=== PATIENT | male | born 1975 | race Hispanic/Latino ===

== ENCOUNTER 2023-03-07 15:39 | Emergency (ER) | payer MEDICAID, SELFPAY ==
[2023-03-07 15:53] VITALS: BP 126/87; PULSE 86; RESP 16; TEMP 36.4; O2SAT 97
--- NOTE | 2023-03-07 16:27 | ED.GENADULT ---
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 Patient report that he he has pain at the distal area of bilateral 4th toes nails, no redness or any drainage noted. Patient has cut his nails short.Bilateral great toes have hardened yellowed nails but patient denies any pain to those nails. Patient has not taken any OTC medication for his pain. MD complaint: pain bilateral 4th toes at distal nails Onset (ago): week(s) (2-3 weeks) Location: lower extremity (feet 4th nails) Severity scale (1-10): 7 Treatments prior to arrival: none Related Data Home Medications Medication Instructions Recorded Confirmed allopurinol 100 mg tablet mg 03/07/23 atorvastatin 40 mg tablet mg 03/07/23 finasteride 5 mg tablet mg 03/07/23 fluticasone propionate 50 intranasal 03/07/23 mcg/actuation nasal spray,suspension gabapentin 300 mg capsule mg 03/07/23 tamsulosin 0.4 mg capsule mg PO 03/07/23 Allergies Allergy/AdvReac Type Severity Reaction Status Date / Time No Known Allergies Allergy Verified 03/07/23 15:52 Review of Systems Review of Systems: CONSTITUTIONAL: Denies fever, chills, or sweats. EYES: Denies visual changes, redness, or discharge. ENT: Denies rhinorrhea, congestion, sore throat, or otalgia. CARDIOVASCULAR: Denies chest pain, palpitations, or edema. RESPIRATORY: Denies cough or dyspnea. GASTROINTESTINAL: Denies abdominal pain, nausea, vomiting, or diarrhea. GENITOURINARY: Denies dysuria or hematuria. SKIN: Denies rash or itching. MUSCULOSKELETAL: Denies back pain, joint pain, or myalgia.reports pain to his bilateral 4th toes nail area thinks toenails are ingrown NEUROLOGIC: Denies headache, numbness, or weakness. PSYCHIATRIC: Denies anxiety or depression. All systems reviewed & are unremarkable except as noted in HPI and below PMFSH Past Medical History Medical History (Updated 03/09/23 @ 10:00 by Radha Toney NP) Enlarged prostate Gout Hyperlipidemia Kidney stone Social History Social History (Updated 03/09/23 @ 09:59 by Radha Toney NP) Smoking status: Never smoker Alcohol intake: current Alcohol use details: social Substance use type: does not use Gender identity (if verbalized by the patient): Male Comments At time of signature, agree with nursing past medical, surgical, social and family history. There is no relevant family history pertinent to the presenting complaint Exam Narrative: GENERAL: Well-appearing, well-nourished, and in no acute distress.afebrile HEAD: Normocephalic, atraumatic. EYES: PERRLA and EOMI. ENT: Nares clear, no rhinorrhea or epistaxis. Mucous membranes moist.TM's normal, throat pink with no swelling NECK: Supple. no lymphadenopathy CHEST: Clear to auscultation. No respiratory distress.SAO2 97% on room air HEART: Regular rate and rhythm. No murmur heard. Normal peripheral pulses. ABDOMEN: Soft, nontender, nondistended, normal active bowel sounds EXTREMITIES: Normal range of motion. No edema. SKIN: Warm, dry, no rash. reports pain to distal area of nail bilateral 4th toes with no redness swelling or drainage noted from toes, patient has cut nails short on these toes with no induration or indention of nails, reports tenderness to distal aspect of 4th toe nails bilateral feet. NEURO: No focal deficits. Alert and oriented x3. Course Course Emergency Course: Patient is aware of diagnosis, understands and ag
== END 2023-03-07 16:40 | disposition home or self-care (01) ==
PROVIDERS: Emergency Provider Registered Nurse
DX: M79.675 Pain in left toe(s) (principal); M79.674 Pain in right toe(s); N40.0 Benign prostatic hyperplasia without lower urinary tract symptoms; M10.9 Gout, unspecified; E78.5 Hyperlipidemia, unspecified
CPT/HCPCS: 99203; G0463

== ENCOUNTER 2023-07-18 09:15 | Outpatient (CLI) | payer MEDICAID, SELFPAY | END 2023-07-18 09:16 | disposition home or self-care (01) | LOC: ANHAUDIO 09:16 | PROVIDERS: PCP Registered Nurse; Referring Provider Registered Nurse; Visit Provider Registered Nurse | DX: H91.93 Unspecified hearing loss, bilateral (principal) | CPT/HCPCS: 99199 ==

== ENCOUNTER 2023-09-26 19:53 | Emergency (ER) | payer MEDICAID, SELFPAY ==
--- NOTE | ~2023-09-26 | XR_ITS ---
EXAMINATION: XR chest 2V 09/26/2023 20:41 INDICATION: Shortness of breath PROCEDURE: 2 view chest COMPARISON: No prior studies for comparison. FINDINGS: The lungs are clear. The cardiomediastinal silhouette is within normal limits. There are no pleural effusions. There is no pneumothorax suspected. IMPRESSION: 1: NO ACUTE CARDIOPULMONARY DISEASE. Reviewed, dictated and finalized at location A.
--- NOTE | ~2023-09-26 | CT_ITS ---
EXAMINATION: CTA chest PE protocol DATE: 09/26/2023 23:36 INDICATION: Chest pain and shortness of breath TECHNIQUE: Computed tomography (CT) pulmonary angiogram of the chest was performed with 100 mL Omnipa que-350 intravenous contrast. Additional 3D reconstructions utilizing coronal maximum intensity proje ction (MIP) were performed. The dose-length product was 541.00 mGy-cm. COMPARISON: None FINDINGS: Good but suboptimal contrast opacification of the pulmonary arteries which along with small amount sc attered respiratory motion decreases sensitivity in the smaller subsegmental pulmonary arteries. No p ulmonary embolism identified. Calcified left apical nodule consistent with old granulomatous disease. Lungs are otherwise clear with no pneumonia, pulmonary edema, pleural effusion or pneumothorax. Hear t size is normal. No pericardial effusion. Thoracic aorta is normal in caliber with no dissection. No pathologically enlarged thoracic lymphadenopathy. Mild thoracic spondylosis. Chronic appearing mild anterior wedging at T11-L1. IMPRESSION: 1. No pulmonary embolism or other acute cardiopulmonary disease. Reviewed, dictated and finalized at location A.
[2023-09-26 19:57] VITALS: BP 145/86; PULSE 97; RESP 12; TEMP 36.7; O2SAT 100
--- NOTE | 2023-09-26 19:57 | ECG_ITS ---
Measurements Intervals [place] Rate: 96 P: 34 [place]: 168 QRS: 0 QRSD: 80 T: 6 QT: 309 QTc: 392 Interpretive Statements SINUS RHYTHM VOLTAGE CRITERIA FOR LVH MINIMAL Q WAVES- HIGH LATERAL LEADS BASELINE ARTIFACT- I, II, AVR BORDERLINE ECG NO PREVIOUS ECG AVAILABLE FOR COMPARISON Electronically Signed On 09-26-2023 20:32:44 CDT by Mc Moreira D.O.
[2023-09-26 20:09] VITALS: O2SAT 98
[2023-09-26 20:20] LABS: Basophils Percent Auto 0.3 % (0.2-1.2); Eosinophils Absolute Auto 0.2 K/mm3 (0-0.3); Eosinophils Percent Auto 2.3 % (0-4.4); Hematocrit 46.2 % (42.0-52.0); Hemoglobin 15.2 g/dL (14.0-18.0); Immature Granulocyte Absolute 0.03 K/mm3 (0.00-0.031); Immature Granulocyte Percent A 0.3 % (0-0.5); Lymphocytes Absolute Auto 4.34 K/mm3 (0.9-3.2); Lymphocytes Percent Auto 42.5 % (18.3-44.2); Mean Corpuscular HGB Conc 32.9 g/dl (32-36); Mean Corpuscular Hemoglobin 28.8 pg (26-34); Mean Corpuscular Volume 87.7 fl (80-100); Mean Platelet Volume 12.7 fl (7.4-10.4); Monocytes Absolute Auto 0.7 K/mm3 (0.1-0.6); Monocytes Percent Auto 7.1 % (2.6-8.5); Neutrophils Absolute Auto 4.9 K/mm3 (1.3-6.7); Neutrophils Percent Auto 47.5 % (45.5-73.1); Platelet Count Result 195 k/mm3 (150-375); Red Blood Count 5.27 M/mm3 (4.6-6.20); Red Cell Distribution Width 14.6 % (11.5-14.5); White Blood Count 10.2 K/mm3 (4.5-10.0)
[2023-09-26 20:43] LABS: Alanine Aminotransferase 32 U/L (6-50); Albumin Level 4.6 g/dL (3.5-5.1); Alkaline Phosphatase 73 U/L (38-126); Anion Gap 7 mmol/L (8-16); Aspartate Amino Transferase 28 U/L (17-59); Bilirubin,Total 0.6 mg/dL (0.2-1.3); Blood Urea Nitrogen 12 mg/dL (9-20); Calcium 9.5 mg/dL (8.4-10.2); Carbon Dioxide 25 mmol/L (22-30); Chloride 108 mmol/L (98-107); Estimated CRCL calculation 162 ml/min; Estimated Glomerular Filt Rate > 60; Glucose 149 mg/dL (65-110); Sodium 140 mmol/L (137-145)
[2023-09-26 20:44] VITALS: BP 129/91; PULSE 94; RESP 14; O2SAT 96
[2023-09-26 20:57] LABS: NT Pro B Type Natriuretic Pept < 20 pg/mL (19.9-100); Troponin I < 0.012 ng/mL (0.000-0.034)
[2023-09-26 21:12] LABS: INR 0.9
[2023-09-26 21:13] LABS: Partial Thromboplastin Time 32.4 Seconds (22.3-36.8)
[2023-09-26 21:16] LABS: Influenza A QL RT-PCR Negative (Negative); Influenza B QL RT-PCR Negative (Negative); RSV RNA, RT-PCR Negative (Negative); SARS-CoV-2 RNA PCR Negative (Negative)
[2023-09-26 21:58] VITALS: BP 119/84; PULSE 96; RESP 19; O2SAT 98
--- NOTE | 2023-09-26 22:45 | ED.GENADULT ---
HPI - General Adult General Chief complaint: Shortness of Breath/Dyspnea Stated complaint: i cant breathe well Time Seen by Provider: 09/26/23 19:58 History of Present Illness HPI narrative: Patient is a 48-year-old gentleman who presents emergency department with chief complaint of shortness of breath. Patient reports that for some time he has been having some episodes of shortness of breath patient states it feels as though he just can not get a good deep breath. Patient states that he also had some tightness in his chest with this patient states this been ongoing for over a year reports that he has not seen his primary care provider about a patient denies radiation of the pain denies diaphoresis reports that he has no prior cardiac history. Related Data Home Medications Medication Instructions Recorded Confirmed allopurinol 100 mg tablet mg 03/07/23 atorvastatin 40 mg tablet mg 03/07/23 finasteride 5 mg tablet mg 03/07/23 fluticasone propionate 50 intranasal 03/07/23 mcg/actuation nasal spray,suspension gabapentin 300 mg capsule mg 03/07/23 tamsulosin 0.4 mg capsule mg PO 03/07/23 Allergies Allergy/AdvReac Type Severity Reaction Status Date / Time No Known Allergies Allergy Verified 03/07/23 15:52 Review of Systems Review of Systems: A 10 system review of systems was completed on the patient and is negative except for what is stated in the HPI. Nursing and ancillary documentation was reviewed. COUNT INCLUDES THE [facility] Past Medical History Medical History Enlarged prostate Gout Hyperlipidemia Kidney stone Social History Social History Smoking status: Never smoker Alcohol intake: current Alcohol use details: social Substance use type: does not use Gender identity (if verbalized by the patient): Male Exam Narrative: GENERAL: Well-appearing, well-nourished, and in no acute distress. HEAD: Normocephalic, atraumatic. EYES: PERRLA and EOMI. ENT: Nares clear, no rhinorrhea or epistaxis. Mucous membranes moist. NECK: Supple. CHEST: Clear to auscultation. No respiratory distress. HEART: Regular rate and rhythm. No murmur heard. Normal peripheral pulses. ABDOMEN: Soft, nontender, nondistended, normal active bowel sounds. EXTREMITIES: Normal range of motion. No edema. SKIN: Warm, dry, no rash. NEURO: No focal deficits. Alert and oriented x3. PSYCH: Normal mood and affect. Course Vital Signs Vital signs: Vital Signs Temperature 36.7 C 09/26/23 19:57 Pulse Rate 97 09/26/23 19:57 Respiratory Rate 12 09/26/23 19:57 Blood Pressure 145/86 H 09/26/23 19:57 Pulse Oximetry 100 09/26/23 19:57 Temperature 36.7 C 09/26/23 19:57 Pulse Rate 70 09/27/23 02:15 Respiratory Rate 21 H 09/27/23 02:15 Blood Pressure 134/86 09/27/23 02:15 Pulse Oximetry 95 09/27/23 02:15 Oxygen Delivery Room Air 09/26/23 20:09 Medical Decision Making MDM Narrative Medical decision making narrative: Differential diagnosis includes pneumothorax, pneumonia, PE, aortic dissection, CHF, ACS, Laboratory studies were obtained and were within normal limits EKG showed no acute ischemic changes white count was normal troponin was negative at 0 and 3 hours BNP was normal COVID flu and RSV were negative. CT PE protocol was negative for PE Vital Signs Vital Signs: Vital Signs Temperature 36.7 C 09/26/23 19:57 Pulse Rate 97 09/26/23 19:57 Respiratory Rate 12 09/26/23 19:57 Blood Pressure 145/86 H 09/26/23 19:57 Pulse Oximetry 100 09/26/23 19:57 Temperature 36.7 C 09/26/23 19:57 Pulse Rate 70 09/27/23 02:15 Respiratory Rate 21 H 09/27/23 02:15 Blood Pressure 134/86 09/27/23 02:15 Pulse Oximetry 95 09/27/23 02:15 Oxygen Delivery Room Air 09/26/23 20:09 Lab Data 09/26/23 20:13 09/26/23 20:13
[2023-09-26 23:00] VITALS: BP 119/84; PULSE 92; RESP 16; O2SAT 93
--- NOTE | 2023-09-26 23:14 | PC.NURSE ---
Assumed care of pt at this time. Pt alert and upright on stretcher.
--- NOTE | 2023-09-26 23:23 | PC.NURSE ---
Pt to CT via stretcher at this time.
--- NOTE | 2023-09-26 23:39 | ECG_ITS ---
Measurements Intervals [place] Rate: 75 P: 25 [place]: 175 QRS: -1 QRSD: 87 T: 0 QT: 319 QTc: 358 Interpretive Statements SINUS RHYTHM VOLTAGE CRITERIA FOR LVH MINIMAL Q WAVES- HIGH LATERAL LEADS BORDERLINE ST-T WAVE ABNORMALITY- INFERIOR LEADS BORDERLINE ECG COMPARED TO ECG 09/26/2023 20:06:36 NO SIGNIFICANT CHANGES Electronically Signed On 09-27-2023 7:54:38 CDT by Mc Moreira D.O.
[2023-09-27 00:23] LABS: Troponin I < 0.012 ng/mL (0.000-0.034)
[2023-09-27 00:24] VITALS: BP 136/76; PULSE 85; RESP 13; O2SAT 96
[2023-09-27 02:15] VITALS: BP 134/86; PULSE 70; RESP 21; O2SAT 95
[2023-09-27 03:41] VITALS: BP 132/86; PULSE 80; RESP 17; O2SAT 99
== END 2023-09-27 03:41 | disposition home or self-care (01) ==
PROVIDERS: Emergency Provider Emergency Medicine; PCP Registered Nurse
DX: R06.00 Dyspnea, unspecified (principal); Z20.822 Contact with and (suspected) exposure to COVID-19; E78.5 Hyperlipidemia, unspecified; M10.9 Gout, unspecified; N40.0 Benign prostatic hyperplasia without lower urinary tract symptoms; Z87.442 Personal history of urinary calculi; R94.31 Abnormal electrocardiogram [ECG] [EKG]
CPT/HCPCS: 36415; 71046; 71275; 80053; 83880; 84484; 85025; 85610; 85730; 87637; 93005; 99284; Q9967

== ENCOUNTER 2024-09-21 13:00 | Outpatient (CLI) | payer MEDICAID, SELFPAY ==
--- NOTE | 2024-09-21 13:30 | NEURO_ITS ---
Impression: # Complains of right hand numbness. ? # Right Carpal Tunnel Syndrome. ? # No ulnar neuropathy. ? # Normal needle/EMG exam. Nerve Conduction Studies Anti Sensory Summary Table ?Stim Site NR Peak (ms) P-T Amp (?V) Site1 Site2 Delta-P (ms) Dist (cm) David (m/s) Right Median Anti Sensory (2-3nd Digit) Wrist ? 3.9 31.9 Wrist 2-3nd Digit 3.9 14.0 36 Wrist ? 4.2 7.4 Wrist 2-3nd Digit 3.9 14.0 36 Right Radial Anti Sensory (Base 1st Digit) Wrist ? 1.9 30.6 Wrist Base 1st Digit 1.9 0.0 Right Ulnar Anti Sensory (5th Digit) Wrist ? 2.3 51.7 Wrist 5th Digit 2.3 14.0 61 Motor Summary Table ?Stim Site NR Onset (ms) O-P Amp (mV) Site1 Site2 Delta-0 (ms) Dist (cm) David (m/s) Right Median Motor (Abd Poll Brev) Wrist ? 4.5 3.5 Elbow Wrist 5.2 30.0 58 Elbow ? 9.7 3.1 Right Ulnar Motor (Abd Dig Minimi) Wrist ? 2.5 5.5 A Elbow Wrist 5.1 30.0 59 A Elbow ? 7.6 4.6 F Wave Studies ?NR F-Lat (ms) L-R F-Lat (ms) Right Median (Mrkrs) (Abd Poll Brev) ? 29.09 Right Ulnar (Mrkrs) (Abd Dig Min) ? 28.22 EMG ?Side Muscle Nerve Root Ins Act Fibs Amp Dur Recrt Comment Right 1stDorInt Ulnar C8-T1 Nml Nml Nml Nml Nml Right Ext Indicis Radial (Post Int) C7-8 Nml Nml Nml Nml Nml Right Ext Digitorum Radial (Post Int) C7-8 Nml Nml Nml Nml Nml Right BrachioRad Radial C5-6 Nml Nml Nml Nml Nml Right PronatorTeres Median C6-7 Nml Nml Nml Nml Nml Right Abd Poll Brev Median C8-T1 Nml Nml Nml Nml Nml Right ABD Dig Min Ulnar C8-T1 Nml Nml Nml Nml Nml MTDD
--- OUTSIDE RECORDS SUMMARY | 2024-09-21 14:44 | XMS_ITS | Clinical Summary ---
Author Organization [facility] Address [address] [place] [id number] Care Team Providers Care Etl Manager Name Role Phone Lesvia Wiseman DEBEAKER Primary Care Provider [phone] Allergies No known active allergies Medications omeprazole (PriLOSEC) 40 mg capsule Take 1 capsule (40 mg total) by mouth daily 30 capsule 09/29/2023 Active Social History Tobacco Use Types Packs/Day Years Used Date Smoking Tobacco: Never Assessed Personal Safety Answer Date Recorded Have you ever been in or are you currently in a harmful physical or emotional relationship or is someone making you feel afraid or unsafe? Denies 09/29/2023 Sex and Gender Information Value Date Recorded Sex Assigned at Not on file Legal Sex Male 12:27 PM CDT Gender Identity Not on file Sexual Orientation Not on file Last Filed Vital Signs Vital Sign Reading Time Taken Comments Blood Pressure 151/95 09/29/2023 9:00 PM CDT Pulse 79 09/29/2023 9:00 PM CDT Temperature 36.8 C (98.2 F) 09/29/2023 12:30 PM CDT Respiratory Rate 10 09/29/2023 9:00 PM CDT Oxygen Saturation 99% 09/29/2023 9:00 PM CDT Inhaled Oxygen Concentration - - Weight 86.6 kg (190 lb 14.7 oz) 024 12:30 PM CDT Height - - Body Mass Index - - Plan of Treatment Health Maintenance Due Date Last Done Comments Colon Cancer Screening-Colonoscopy 1976 Depression Screening 1976 Hepatitis C Screening 1976 Hepatitis B Screening 02/19/1994 Regular Well Visit/Exam 18-64 02/19/1994 Influenza Vaccine (#1) 2024 DTaP/Tdap/Td Vaccine (2 - Td or Tdap) 11/15/2032 11/15/2022 Pneumococcal vaccine <65 Aged Out No longer eligible based on patient's age to complete this topic Insurance IDPA Care Teams Etl Manager Relationship Specialty Start Date End Date Lesvia Wiseman NP [address] [place] [address] PCP - General Nurse Practitioner 09/29/23
--- OUTSIDE RECORDS SUMMARY | 2024-09-21 14:44 | XMS_ITS | Referral Summary ---
Author Organization [facility] Address [address] [place] [id number] Care Team Providers Care Ice Cream Freezer Assistant Name Role Phone Lesvia Wiseman CAFE COOK Primary Care Provider [phone] Allergies No known active allergies Medications omeprazole [...] Mass Index - - Plan of Treatment Not on file Insurance IDPA Care Teams Ice Cream Freezer Assistant Relationship Specialty Start Date End Date Lesvia Wiseman NP [address] [place] [address] PCP - General Nurse Practitioner 09/29/23
--- OUTSIDE RECORDS SUMMARY | 2024-09-21 14:44 | XMS_ITS | Data Portability ---
Author Organization [facility] Address [address] [place] [address] Care Team Providers Care Crane Man Name Role Phone DAVID, LESVIA Primary Care Provider Unavailabl e Assessment No assessment recorded. 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 Not available Not available Not available Lab lipid panel, serum 2024 025 D[facility], [address] [place], [place] [address], [address], [place], [address], 08/20/2024 22:07:06 glucose, fingersti ck, blood 2024 025 yanet In-Office Order, Internal Use Only DO Not Attach Compendium DO Not Attach Compendium, Do Not Delete/merge, [id number] 08/20/2024 10:50:44 HbA1c (hemoglob in A1c), blood 2024 025 DARCY In-Office Order, Internal Use Only DO Not Attach Compendium DO Not Attach Compendium, Do Not Delete/merge, [id number] 08/20/2024 10:54:08 culture, urine 2024 025 [facility], [facility], [address], [place], [address], 07/23/2024 21:07:22 albumin/c reatinine , mass ratio, urine 2024 025 DARCY ORTIZ, [facility], [address], [place], [address], 07/22/2024 11:14:56 PSA, total, serum or plasma 2024 025 [facility], [address], [address], [place], [address], 07/22/2024 11:14:59 urinalysi s, dipstick 2024 025 DARCY In-Office Order, Internal Use Only DO Not Attach Compendium DO Not Attach Compendium, Do Not Delete/merge, [id number] 07/21/2024 11:06:52 HbA1c (hemoglob in A1c), blood 2024 025 DARC[facility] In-Office Order, Internal Use Only DO Not Attach Compendium DO Not Attach Compendium, Do Not Delete/merge, [id number] 07/21/2024 11:07:10 CMP, serum or plasma 2024 025 [facility], [address], [address], [place], [address], 07/21/2024 22:07:32 CBC w/ auto diff 2024 025 [facility], [address], [address], [place], [address], 07/21/2024 22:07:33 lipid panel, serum 2024 025 [facility], [address], [address], [place], [address], 07/21/2024 22:07:31 TSH, ultra-sen sitive, serum 2024 025 DARC[facility], [address], [address], [place], [address], 07/22/2024 11:14:58 lipid panel, serum 2023 024 ADR[facility], [address], [address], [place], [address], 11/10/2023 22:07:23 CMP, serum or plasma 2023 024 D[facility], [address], [address], [place], [address], 11/10/2023 22:07:24 TSH, ultra-sen sitive, serum 2023 024 [facility], [address], [address], [place], [address], 11/11/2023 12:12:57 CBC w/ auto diff 2023 024 [facility], [address], [address], [place], [address], 11/10/2023 22:07:24 urinalysi s, dipstick, reflex micro 2023 024 D[facility], [address], [address], [place], [address], 11/11/2023 12:12:56 HbA1c (hemoglob in A1c), blood 2023 024 [place] In-Office Order, Internal Use Only DO Not Attach Compendium DO Not Attach Compendium, Do Not Delete/merge, [id number] 11/10/2023 14:36:[address] referral 2024 025 [facility] (Audiology), [address] [place] [address] [address], [place], [address], 07/21/2024 16:01:15 urologist referral 2023 024 [facility], [address], [place], [address], 08/24/2024 10:30:55 Procedures nerve conductio n study/EMG , upper extremity (PROC) - numbness and tingling of hands/fin gers/wris t for months worse on R than L 2024 025 [facility] (Cardiology & Emg), [address] [facility] [facility] [address], [place], [address], 08/05/2024 16:18:48 Surgeries None recorded. Imaging tympanogr am 2024 025 [place] In-Office Order, Internal Use Only DO Not Attach Compendium DO Not Attach Compendium, Do Not Delete/merge, [id number] 09/08/2024 15:55:42 Medication Orders Vascepa 1 gram capsule 2024 025 [facility], [address] [place] [address], [id number], 08/20/2024 10:50:44 metformin ER 500 mg tablet,ex tended release 24 hr 2024 025 [facility], [address] [place] [address], [place], [address], 08/20/2024 10:51:16 doxycycli ne hyclate 100 mg tablet 2024 025 [facility], [address] [place] [address], [id number], 08/20/2024 10:11:08 metformin ER 500 mg tablet,ex tended release 24 hr 2024 025 [facility], [address] [place] [address], [id number], 07/21/2024 11:18:26 chlorthal idone 15 mg tablet 2024 025 [place], [address] [place] [address], [id number], 07/28/2024 12:57:21 tamsulosi n 0.4 mg capsule 2024 025 [facility], [address] [place] [address], [id number], 07/22/2024 11:58:15 finasteri de 5 mg tablet 2024 025 [facility], [address] [place] [address], [id number], 07/22/2024 11:58:13 selenium sulfide 2.5 % lotion 2024 [facility], [address] [place] [address], [id number], 07/21/2024 10:42:03 atorvasta tin 40 mg tablet 2024 025 [facility], [address] [place] [address], [id number], 07/29/2024 17:21:29 Vascepa 1 gram capsule 2024 025 [facility], [address] [place] [address], [id number], 07/22/2024 11:28:00 citalopra m 20 mg tablet 2024 025 [facility], [address] [place] [address], [id number], 07/21/2024 10:37:47 gabapenti n 300 mg capsule 2024 025 [facility], [address] [place] [address], [id number], 07/28/2024 12:57:21 allopurin ol 200 mg tablet 2024 025 [facility], [address] [place] [address], [id number], 07/29/2024 11:42:45 chlorthal idone 15 mg tablet 2023 [facility], [address] [place] [address], [id number], 04/20/2024 11:32:58 tamsulosi n 0.4 mg capsule 2023 [facility], [address] [place] [address], [id number], 04/20/2024 11:33:01 finasteri de 5 mg tablet 2023 [facility], [address] [place] [address], [id number], 04/20/2024 11:32:56 atorvasta tin 40 mg tablet [address] [facility], [address] [place] [address], [id number], 07/29/2024 17:11:22 Vascepa 1 gram capsule 2023 [facility], [address] [place] [address], [id number], 04/20/2024 11:33:00 gabapenti n 300 mg capsule 2023 [facility], [address] [place] [address], [id number], 04/20/2024 11:33:03 allopurin ol 200 mg tablet 2023 [facility], [address] [place] [address], [id number], 04/20/2024 11:32:58 citalopra m 20 mg tablet 2023 [facility], [address] [place], [id number], 12/29/2023 13:13:13 ciproflox acin 0.3 %-dexamet hasone 0.1 % ear drops,[employer] 2023 024 [facility], [address] [place], [address], 04/20/2024 10:28:26 chlorthal idone 15 mg tablet 2023 024 [facility], [address] [place] [address], [id number], 12/03/2023 16:37:40 tamsulosi n 0.4 mg capsule 2023 024 [facility], [address] [place] [address], [id number], 05/28/2024 18:13:47 finasteri de 5 mg tablet 2023 024 [facility], [address] [place] [address], [id number], 11/10/2023 15:27:51 atorvasta tin 40 mg tablet [address] [facility], [address] [place] [address], [id number], 07/29/2024 17:11:22 Vascepa 1 gram capsule 2023 024 [facility], [address] [place] [address], [id number], 11/13/2023 16:20:33 gabapenti n 300 mg capsule 2023 024 [facility], [address] [place] [address], [id number], 11/13/2023 16:20:32 allopurin ol 200 mg tablet 2023 024 [facility], [address] [place], [place], [id number], 05/28/2024 17:48:31 Patient TargetsNo targets recorded. Patient Instructions Encounter Date Encounter Id Patient Instructions Last Modified By Organization Details Last Modified Time 11/10/2023 [id number] A healthy lifestyle: care instructions yarauz Not available 11/10/2023 14:01:24 P rdida de la audici n: instrucciones de cuidado - [hearing loss: care instructions] yarauz Not available 11/10/2023 14:01:24 aprenda sobre la presi n arterial elsa - [learning about high blood pressure] yarauz Not available 11/10/2023 14:01:24 Enfermedad hep chapo grasa no alcoh lica: Instrucciones de cuidado - [Nonalcoholic Fatty Liver Disease (NAFLD): Care Instructions] yarauz Not available 11/10/2023 14:14:28 hiperplasia pros t chapo benigna: instrucciones de cuidado - [benign prostatic hyperplasia: care instructions] yarauz Not available 11/10/2023 14:01:24 S ndrome del t viridiaan carpiano: ejercicios - [carpal tunnel syndrome: exercises] yarauz Not available 11/10/2023 14:01:24 S ndrome del t viridiana carpiano: instrucciones de cuidado - [carpal tunnel syndrome: care instructions] yarauz Not available 11/10/2023 14:01:24 aprenda sobre la dieta para prevenir los c lculos renales - [learning about diet for kidney stone prevention] yarauz Not available 11/10/2023 14:01:24 C lculo renal: instrucciones de cuidado - [kidney stone: care instructions] yarauz Not available 11/10/2023 14:01:24 dieta restringid a en purinas: instrucciones de cuidado - [purine-restricted diet: care instructions] yarauz Not available 11/10/2023 14:01:24 trastorno de adaptaci n: instrucciones de cuidado - [neuropathic pain: care instructions] yarauz Not available 11/10/2023 14:01:24 aprenda acerca d el peso saludable - [learning about healthy weight] yarauz Not available 11/10/2023 14:01:23 ndice de masa corporal: instrucciones de cuidado - [body mass index: care instructions] yarauz Not available 11/10/2023 14:01:24 Mantenga un peso saludable. O si lo necesita, llegue lentamente a un peso saludable. Controle san colesterol. Hable con san m dico acerca de maneras de reducir el colesterol, si es necesario. Podr a tratar de hacer actividad, juliet medicamentos y hacer cambios saludables en san dieta. Coma alimentos saludables. Entre ellos se incluyen frutas, verduras, brian magras, productos l cteos bajos en grasa y granos integrales. Si tiene diabetes, mantenga el nivel de az car en la joel en san nivel ideal. Anali por lo menos 30 minutos de ejercicio la mayor a de los d as de la semana. Caminar es chaparro buena opci n. Quiz tambi n desee hacer otras actividades, jonn correr, nadar, montar en bicicleta, jugar al tenis o practicar otros deportes de equipo. Limite el consumo de alcohol, o no armin. El alcohol puede da ar el h gado y causar problemas de aniket. yarauz Not available 11/10/2023 13:39:31 use wrist splint take medication as directed Uncontrolled Hypertension potential risks, heart attack, , stroke, kidney failure etc. Hypertension is the silent Killer Take your Hypertension medication daily keep appointments stop concentrated sugars--follow 1500 meal plan exercise 50-60 minutes daily on most days see eye doctor once a year see dentist every 6 months yarauz Not available 11/10/2023 13:39:30 12/29/2023 [id number] Cuando desea baj ar de peso: Instrucciones de cuidado - [When You Want to Lose Weight: Care Instructions] yarauz Not available 12/29/2023 13:12:49 A healthy lifestyle: care instructions yarauz Not available 12/29/2023 13:12:49 Benefits risks o f psychotropic medications if you develop suicidal thoughts or behaviors seek immediate reevaluation avoid alcohol when taking psychotropic medications if you develop fevers, chills, diarrhea, muscle symptoms or seizures to seek immediate reevaluation take your medicine as directed Pt. advised to call 911 or go to a local Emergency Department with any SI or HI, thoughts of self harm or any psychiatric emergency. Pt. is deemed safe and appropriate for continued out patient treatment. Pt. advised of the risk benefit ratio of medication, possible side effects and interactions of the meditations. Pt. wishes to continue with the treatment plan. Pt. advised to call or come in sooner than the scheduled appt. if there are any worsening of symptoms or problems with the medication yarauz Not available 12/29/2023 13:10:23 04/20/2024 [id number] A healthy lifestyle: care instructions yarauz Not available 04/20/2024 10:50:52 P rdida de la audici n: instrucciones de cuidado - [hearing loss: care instructions] yarauz Not available 04/20/2024 10:50:52 aprenda sobre la presi n arterial elsa - [learning about high blood pressure] yarauz Not available 04/20/2024 10:50:52 Enfermedad hep chapo grasa no alcoh lica: Instrucciones de cuidado - [Nonalcoholic Fatty Liver Disease (NAFLD): Care Instructions] yarauz Not available 04/20/2024 10:50:52 hiperplasia pros t chapo benigna: instrucciones de cuidado - [benign prostatic hyperplasia: care instructions] yarauz Not available 04/20/2024 10:50:52 S ndrome del t viridiana carpiano: ejercicios - [carpal tunnel syndrome: exercises] yarauz Not available 04/20/2024 10:50:52 S ndrome del t viridiana carpiano: instrucciones de cuidado - [carpal tunnel syndrome: care instructions] yarauz Not available 04/20/2024 10:50:52 vacuna contra la influenza (gripe): instrucciones de cuidado - [influenza (flu) vaccine: care instructions] yarauz Not available 04/20/2024 10:50:52 dieta restringid a en purinas: instrucciones de cuidado - [purine-restricted diet: care instructions] yarauz Not available 04/20/2024 10:50:52 trastorno de adaptaci n: instrucciones de cuidado - [neuropathic pain: care instructions] yarauz Not available 04/20/2024 10:50:52 aprenda acerca d el peso saludable - [learning about healthy weight] yarauz Not available 04/20/2024 10:50:52 ndice de masa corporal: instrucciones de cuidado - [body mass index: care instructions] yarauz Not available 04/20/2024 10:50:52 Mantenga un peso saludable. O si lo necesita, llegue lentamente a un peso saludable. Controle san colesterol. Hable con san m dico acerca de maneras de reducir el colesterol, si es necesario. Podr a tratar de hacer actividad, juliet medicamentos y hacer cambios saludables en san dieta. Coma alimentos saludables. Entre ellos se incluyen frutas, verduras, brian magras, productos l cteos bajos en grasa y granos integrales. Si tiene diabetes, mantenga el nivel de az car en la joel en san nivel ideal. Anali por lo menos 30 minutos de ejercicio la mayor a de los d as de la semana. Caminar es chaparro buena opci n. Quiz tambi n desee hacer otras actividades, jonn correr, nadar, montar en bicicleta, jugar al tenis o practicar otros deportes de equipo. Limite el consumo de alcohol, o no armin. El alcohol puede da ar el h gado y causar problemas de aniket. yarauz Not available 04/20/2024 14:59:52 use wrist splint take medication as directed Uncontrolled Hypertension potential risks, heart attack, , stroke, kidney failure etc. Hypertension is the silent Killer Take your Hypertension medication daily keep appointments stop concentrated sugars--follow 1500 meal plan exercise 50-60 minutes daily on most days see eye doctor once a year see dentist every 6 months yarauz Not available 04/20/2024 14:59:55 07/21/2024 [id number] joel en la orina: instrucciones de cuidado - [blood in the urine: care instructions] yarauz Not available 07/21/2024 11:18:08 aprenda acerca d e la diabetes tipo 2 - [learning about type 2 diabetes] yarauz Not available 07/21/2024 11:18:08 diabetes tipo 2: instrucciones de cuidado - [type 2 diabetes: care instructions] yarauz Not available 07/21/2024 11:18:08 A healthy lifestyle: care instructions yarauz Not available 07/21/2024 10:37:25 A healthy lifestyle: care instructions yarauz Not available 07/21/2024 11:18:08 P rdida de la audici n: instrucciones de cuidado - [hearing loss: care instructions] yarauz Not available 07/21/2024 10:37:25 aprenda sobre la presi n arterial elsa - [learning about high blood pressure] yarauz Not available 07/21/2024 10:37:25 Enfermedad hep chapo grasa no alcoh lica: Instrucciones de cuidado - [Nonalcoholic Fatty Liver Disease (NAFLD): Care Instructions] yarauz Not available 07/21/2024 10:37:25 hiperplasia pros t chapo benigna: instrucciones de cuidado - [benign prostatic hyperplasia: care instructions] yarauz Not available 07/21/2024 10:37:25 S ndrome del t viridiana carpiano: ejercicios - [carpal tunnel syndrome: exercises] yarauz Not available 07/21/2024 10:37:25 S ndrome del t viridiana carpiano: instrucciones de cuidado - [carpal tunnel syndrome: care instructions] yarauz Not available 07/21/2024 10:37:25 dieta restringid a en purinas: instrucciones de cuidado - [purine-restricted diet: care instructions] yarauz Not available 07/21/2024 10:37:26 trastorno de adaptaci n: instrucciones de cuidado - [neuropathic pain: care instructions] yarauz Not available 07/21/2024 10:37:26 aprenda acerca d el peso saludable - [learning about healthy weight] yarauz Not available 07/21/2024 10:37:25 ndice de masa corporal: instrucciones de cuidado - [body mass index: care instructions] yarauz Not available 07/21/2024 10:37:25 Mantenga un peso saludable. O si lo necesita, llegue lentamente a un peso saludable. Controle san colesterol. Hable con san m dico acerca de maneras de reducir el colesterol, si es necesario. Podr a tratar de hacer actividad, juliet medicamentos y hacer cambios saludables en san dieta. Coma alimentos saludables. Entre ellos se incluyen frutas, verduras, brian magras, productos l cteos bajos en grasa y granos integrales. Si tiene diabetes, mantenga el nivel de az car en la joel en san nivel ideal. Anali por lo menos 30 minutos de ejercicio la mayor a de los d as de la semana. Caminar es chaparro buena opci n. Quiz tambi n desee hacer otras actividades, jonn correr, nadar, montar en bicicleta, jugar al tenis o practicar otros deportes de equipo. Limite el consumo de alcohol, o no armin. El alcohol puede da ar el h gado y causar problemas de aniket. yarauz Not available 07/21/2024 10:26:28 use wrist splint take medication as directed Uncontrolled Hypertension potential risks, heart attack, , stroke, kidney failure etc. Hypertension is the silent Killer Take your Hypertension medication daily keep appointments stop concentrated sugars--follow 1500 meal plan exercise 50-60 minutes daily on most days see eye doctor once a year see dentist every 6 months yarauz Not available 07/21/2024 10:26:29 08/20/2024 [id number] aprenda acerca d e la diabetes tipo 2 - [learning about type 2 diabetes] yarauz Not available 08/20/2024 10:50:44 diabetes tipo 2: instrucciones de cuidado - [type 2 diabetes: care instructions] yarauz Not available 08/20/2024 10:50:44 aprenda acerca d el peso saludable - [learning about healthy weight] yarauz Not available 08/20/2024 10:50:44 ndice de masa corporal: instrucciones de cuidado - [body mass index: care instructions] yarauz Not available 08/20/2024 10:50:44 DIABETIS MELLITUS NO TRATADA PUEDE RESULTAR EN COMPLICACIONES QUE CONDUCEN A MUERTE SUBITA, CEGUEZ, FALLO DE LOS RINONES, AMPUTACIONES ETC. TOME SAN MEDICAMENTOS TODOS LOS ARENAS CHEQUEE SAN AZUCAR EN AYUNA Y DOS HORAS DESPUES DE COMER--MANTENGA UN DIARIO--TRAIGA A SAN PROXIMA BRIEN DEJE DE JULIET COMER AZUCARES CONCENTRADAS--SIGA UN PLAN DE ALIMENTACION DE 1500 CALORIAS AL JUVENAL CHEQUEE SHELDON PIES POR CORTADA, LLAGAS ETC., TERENCE AL DOCTOR DE LOS OJOS CHAPARRO VEZ AL ANO Y PIDA UN EXAMEN DE DIABETIS DE OJOS TERENCE AL DENTISTA CADA 6 MESES yarauz Not available 08/20/2024 10:47:57 test results morris e vascepa 2 caps twice daily increase metformin ER 500mg one daily to two tabs once daily Uncontrolled Diabetes Mellitus complications , blindness, kidney failure, amputations etc. Take your diabetes medication daily check blood sugars fasting and post prandial --keep a log--bring to next appointment stop concentrated sugars--follow 1500 meal plan exercise 50-60 minutes daily on most days check your feet for sores, cuts, etc., see eye doctor once a year see dentist every 6 months yanet Not available 08/20/2024 10:47:42 Reason for Referral Urologist Referral for Histo ry of calculus of kidney History of calculus of kidney Referring Physician: Lesvia Wiseman [facility], Encounter Date: 11/10/2023 [facility] Psychiatry Referral for Kane ateral hearing loss Bilateral hearing loss Referring Physician: Lesvia Wiseman [facility], Encounter Date: 07/21/2024 Results Created Date Observation Date Name Description Value Unit Range Abnormal Flag Note LastModifiedBy Organization Detail LastModifiedTime 11/10/19 24 11/10/2023 LIPID PANEL cholesterol, total 242 mg/dL 100-19 9 above high normal Not Available [facility] [address] [place], [address], 11/10/2023 22:07:23 11/10/19 24 11/10/2023 LIPID PANEL triglyceride s 350 mg/dL 0-149 above high normal Not Available [facility] [address] [place], [address], 11/10/2023 22:07:23 11/10/19 24 11/10/2023 LIPID PANEL HDL cholesterol 41 mg/dL 40-999 Not Available [facility] [address] [place], [address], 11/10/2023 22:07:23 11/10/19 24 11/10/2023 LIPID PANEL VLDL cholesterol lizzeth 70 mg/dL 5-40 above high normal Not Available [facility] [address] [place], [address], 11/10/2023 22:07:23 11/10/19 24 11/10/2023 LIPID PANEL LDL chol calc (nih) 179 mg/dL 0-99 above high normal Not Available [facility] [address] [place], [address], 11/10/2023 22:07:23 11/10/19 24 11/10/2023 COMP. METAB OLIC PANEL (14) glucose 93 mg/dL 70-[address] [facility] [address] [place], [address], 11/10/2023 22:07:24 11/10/19 24 11/10/2023 COMP. METAB OLIC PANEL (14) BUN 14 mg/dL 6-[address] [facility] [address] [place] [address], [address], 11/10/2023 22:07:24 11/10/19 24 11/10/2023 COMP. METAB OLIC PANEL (14) creatinine 0.68 mg/dL 0.76-1 .27 below low normal Not Available [facility] [address] [place] [address], [address], 11/10/2023 22:07:24 11/10/19 24 11/10/2023 COMP. METAB OLIC PANEL (14) eGFR 115 >=60 Units for eGFR value s are mL/mi n/1.7 3 The eGFR Calcu latio n has not been valid ated for patie nts under the age of 18. If test resul ts are displ ayed for a patie nt under the age of 18, disre cassi that value . Not Available [facility] [address] [place] [address], [address], 11/10/2023 22:07:24 11/10/19 24 11/10/2023 COMP. METAB OLIC PANEL (14) BUN/creatini ne ratio 21 9-20 above high normal Not Available [facility] [address] [place] [address], [address], 11/10/2023 22:07:24 11/10/19 24 11/10/2023 COMP. METAB OLIC PANEL (14) sodium 139 mmol/ L 134-[address] [facility] [address] [place] [address], [address], 11/10/2023 22:07:24 11/10/19 24 11/10/2023 COMP. METAB OLIC PANEL (14) potassium 4.2 mmol/ L 3.5-5. [address] [facility] [address] [place] [address], [address], 11/10/2023 22:07:24 11/10/19 24 11/10/2023 COMP. METAB OLIC PANEL (14) chloride 104 mmol/ L 96-[address] [facility] [address] [place] [address], [address], 11/10/2023 22:07:24 11/10/19 24 11/10/2023 COMP. METAB OLIC PANEL (14) carbon dioxide, total 21 mmol/ L 20-[address] [facility] [address] [place] [address], [address], 11/10/2023 22:07:24 11/10/19 24 11/10/2023 COMP. METAB OLIC PANEL (14) calcium 9.8 mg/dL 8.7-[address] [facility] [address] [place] [address], [address], 11/10/2023 22:07:24 11/10/19 24 11/10/2023 COMP. METAB OLIC PANEL (14) protein, total 7.6 g/dL 6.0-8. [address] [facility] [address] [place] [address], [address], 11/10/2023 22:07:24 11/10/19 24 11/10/2023 COMP. METAB OLIC PANEL (14) albumin 4.8 g/dL 4.1-5. [address] [facility] [address] [place] [address], [address], 11/10/2023 22:07:24 11/10/19 24 11/10/2023 COMP. METAB OLIC PANEL (14) globulin, total 2.8 g/dL 1.5-4. [address] [facility] [address] [place], [address], 11/10/2023 22:07:24 11/10/19 24 11/10/2023 COMP. METAB OLIC PANEL (14) A/G ratio 2.0 1.2-2. [address] [facility] [address] [place], [address], 11/10/2023 22:07:24 11/10/19 24 11/10/2023 COMP. METAB OLIC PANEL (14) bilirubin, total 0.6 mg/dL 0.0-1. [address] [facility] [address] [place], [address], 11/10/2023 22:07:24 11/10/19 24 11/10/2023 COMP. METAB OLIC PANEL (14) alkaline phosphatase 91 IU/L 44-121 Not Available [facility] [address] [place], [address], 11/10/2023 22:07:24 11/10/19 24 11/10/2023 COMP. METAB OLIC PANEL (14) AST (SGOT) 19 IU/L 0-40 Not Available [facility] [address] [place] [address], [address], 11/10/2023 22:07:24 11/10/19 24 11/10/2023 COMP. METAB OLIC PANEL (14) ALT (SGPT) 29 IU/L 0-44 Not Available [facility] Department [address] [place] [address], [address], 11/10/2023 22:07:24 11/10/19 24 11/10/2023 CBC WITH DIFFE RENTI AL/PL ATELE T WBC 8.1 x10e3 /uL 3.4-[address] [facility] [address] [place] [address], [address], 11/10/2023 22:07:24 11/10/19 24 11/10/2023 CBC WITH DIFFE RENTI AL/PL ATELE T RBC 5.73 x10e6 /uL 4.14-[address] [facility] [address] [place], [address], 11/10/2023 22:07:24 11/10/19 24 11/10/2023 CBC WITH DIFFE RENTI AL/PL ATELE T hemoglobin 16.5 g/dL 13.0-[address] [facility] [address] [place], [address], 11/10/2023 22:07:24 11/10/19 24 11/10/2023 CBC WITH DIFFE RENTI AL/PL ATELE T hematocrit 50.2 % 37.5-[address] [facility] [address] [place], [address], 11/10/2023 22:07:24 11/10/19 24 11/10/2023 CBC WITH DIFFE RENTI AL/PL ATELE T MCV 88 fL 79-[address] [facility] [address] [place], [address], 11/10/2023 22:07:24 11/10/19 24 11/10/2023 CBC WITH DIFFE RENTI AL/PL ATELE T MCH 28.8 pg 26.6-[address] [facility] [address] [place], [address], 11/10/2023 22:07:24 11/10/19 24 11/10/2023 CBC WITH DIFFE RENTI AL/PL ATELE T MCHC 32.9 g/dL 31.5-[address] [facility] [address] [place], [address], 11/10/2023 22:07:24 11/10/19 24 11/10/2023 CBC WITH DIFFE RENTI AL/PL ATELE T RDW 13.8 % 11.5-[address] [facility] [address] [place], [address], 11/10/2023 22:07:24 11/10/19 24 11/10/2023 CBC WITH DIFFE RENTI AL/PL ATELE T platelets 221 x10e3 /uL 150-[address] [facility] [address] [place] [address], [address], 11/10/2023 22:07:24 11/10/19 24 11/10/2023 CBC WITH DIFFE RENTI AL/PL ATELE T neutrophils 41 % notest b. Not Available [facility] [address] [place] [address], [address], 11/10/2023 22:07:24 11/10/19 24 11/10/2023 CBC WITH DIFFE RENTI AL/PL ATELE T lymphs 48 % notest b. Not Available [facility] [address] [place] [address], [address], 11/10/2023 22:07:24 11/10/19 24 11/10/2023 CBC WITH DIFFE RENTI AL/PL ATELE T monocytes 7 % notest b. Not Available [facility] [address] [place] [address], [address], 11/10/2023 22:07:24 11/10/19 24 11/10/2023 CBC WITH DIFFE RENTI AL/PL ATELE T eos 3 % notest b. Not Available [facility] [address] [place] [address], [address], 11/10/2023 22:07:24 11/10/19 24 11/10/2023 CBC WITH DIFFE RENTI AL/PL ATELE T basos 1 % notest b. Not Available [facility] [address] [place] [address], [address], 11/10/2023 22:07:24 11/10/19 24 11/10/2023 CBC WITH DIFFE RENTI AL/PL ATELE T neutrophils (absolute) 3.3 x10e3 /uL 1.4-7. [address] [facility] [address] [place], [address], 11/10/2023 22:07:24 11/10/19 24 11/10/2023 CBC WITH DIFFE RENTI AL/PL ATELE T lymphs (absolute) 3.8 x10e3 /uL 0.7-3. 1 above high normal Not Available [facility] [address] [place] [address], [address], 11/10/2023 22:07:24 11/10/19 24 11/10/2023 CBC WITH DIFFE RENTI AL/PL ATELE T monocytes(ab solute) 0.6 x10e3 /uL 0.1-0. [address] [facility] [address] [place], [address], 11/10/2023 22:07:24 11/10/19 24 11/10/2023 CBC WITH DIFFE RENTI AL/PL ATELE T eos (absolute) 0.3 x10e3 /uL 0.0-0. [address] [facility] [address] [place], [address], 11/10/2023 22:07:24 11/10/19 24 11/10/2023 CBC WITH DIFFE RENTI AL/PL ATELE T baso (absolute) 0.1 x10e3 /uL 0.0-0. [address] [facility] [address] [place], [address], 11/10/2023 22:07:24 11/10/19 24 11/10/2023 CBC WITH DIFFE RENTI AL/PL ATELE T immature granulocytes 0.4 % notest b. Not Available [facility] [address] [place], [address], 11/10/2023 22:07:24 11/10/19 24 11/10/2023 CBC WITH DIFFE RENTI AL/PL ATELE T immature grans (abs) 0.0 x10e3 /uL 0.0-0. [address] [facility] [address] [facility], [place], [address], 11/10/2023 22:07:24 11/10/19 24 11/10/2023 CBC WITH DIFFE RENTI AL/PL ATELE T NRBC 0 % 0-[address] [facility] [address] [place], [address], 11/10/2023 22:07:24 11/10/19 24 11/11/2023 URINA LYSIS , ROUTI NE W/RFX specific gravity 1.020 1.005- 1.030 Not Available [facility] ([facility]) [address] [place], [address], 11/11/2023 12:12:56 11/10/19 24 11/11/2023 URINA LYSIS , ROUTI NE W/RFX pH 5.5 5.0-7. 5 Not Available [facility] ([facility]) [address] [place], [address], 11/11/2023 12:12:56 11/10/19 24 11/11/2023 URINA LYSIS , ROUTI NE W/RFX urine-color YELLOW yellow Not Available [facility] ([facility]) [address] [place], [address], 11/11/2023 12:12:56 11/10/19 24 11/11/2023 URINA LYSIS , ROUTI NE W/RFX appearance CLEAR clear Not Available [facility] ([facility]) [address] [place], [address], 11/11/2023 12:12:56 11/10/19 24 11/11/2023 URINA LYSIS , ROUTI NE W/RFX WBC esterase NEGATI VE negati ve Not Available [facility] ([facility]) [address] [facility], [place], [address], 11/11/2023 12:12:56 11/10/19 24 11/11/2023 URINA LYSIS , ROUTI NE W/RFX protein NEGATI VE negati ve/tra ce Not Available [facility] ([facility]) [address] [place], [address], 11/11/2023 12:12:56 11/10/19 24 11/11/2023 URINA LYSIS , ROUTI NE W/RFX glucose NEGATI VE negati ve Not Available [facility] ([facility]) [address] [place], [address], 11/11/2023 12:12:56 11/10/19 24 11/11/2023 URINA LYSIS , ROUTI NE W/RFX ketones NEGATI VE negati ve Not Available [facility] ([facility]) [address] [place], [address], 11/11/2023 12:12:56 11/10/19 24 11/11/2023 URINA LYSIS , ROUTI NE W/RFX occult blood NEGATI VE negati ve Not Available [facility] ([facility]) [address] [place], [address], 11/11/2023 12:12:56 11/10/19 24 11/11/2023 URINA LYSIS , ROUTI NE W/RFX bilirubin NEGATI VE negati ve Not Available [facility] ([facility]) [address] [place], [address], 11/11/2023 12:12:56 11/10/19 24 11/11/2023 URINA LYSIS , ROUTI NE W/RFX urobilinogen ,semi-qn 0.2 mg/dL 0.2-1. 0 Not Available [facility] ([facility]) [address] [facility], [place], [address], 11/11/2023 12:12:56 11/10/19 24 11/11/2023 URINA LYSIS , ROUTI NE W/RFX nitrite, urine NEGATI VE negati ve Not Available [facility] ([facility]) [address] [facility], [place], [address], 11/11/2023 12:12:56 11/10/19 24 11/11/2023 URINA LYSIS , ROUTI NE W/RFX microscopic examination COMMEN T Micro scopi c not indic ated and not perfo rmed. Not Available [facility] ([facility]) [address] [facility], [place], [address], 11/11/2023 12:12:56 11/10/19 24 11/11/2023 TSH RFX ON ABNOR MAL TO FREE T4 TSH 0.946 uIU/m L 0.450- 4.500 Not Available [facility] ([facility]) [address] [facility], [place], [address], 11/11/2023 12:12:57 11/10/19 24 11/10/2023 HbA1c (hemo globi n A1c), blood HbA1c 5.7 Not Available In-Office Order Internal Use Only DO Not Attach Compendium DO Not Attach Compendium, Do Not Delete/merge, [id number] 11/10/2023 13:59:43 07/21/19 25 07/21/2024 LIPID PANEL cholesterol, total 226 mg/dL 100-19 9 above high normal Not Available [facility] [address] [place], [address], 07/21/2024 22:07:30 07/21/19 25 07/21/2024 LIPID PANEL triglyceride s 629 mg/dL 0-149 above high normal Not Available [facility] [address] [place], [address], 07/21/2024 22:07:30 07/21/19 25 07/21/2024 LIPID PANEL HDL cholesterol 31 mg/dL 40-999 below low normal Not Available [facility] [address] [place] [address], [address], 07/21/2024 22:07:30 07/21/19 25 07/21/2024 LIPID PANEL VLDL cholesterol lizzeth 126 mg/dL 5-40 above high normal Not Available [facility] [address] [place] [address], [address], 07/21/2024 22:07:30 07/21/19 25 07/21/2024 LIPID PANEL LDL chol calc (nih) 165 mg/dL 0-99 above high normal Not Available [facility] [address] [place] [address], [address], 07/21/2024 22:07:30 07/21/19 25 07/21/2024 COMP. METAB OLIC PANEL (14) glucose 142 mg/dL 70-99 above high normal Not Available [facility] [address] [place] [address], [address], 07/21/2024 22:07:32 07/21/19 25 07/21/2024 COMP. METAB OLIC PANEL (14) BUN 14 mg/dL 6-[address] [facility] [address] [place] [address], [address], 07/21/2024 22:07:32 07/21/19 25 07/21/2024 COMP. METAB OLIC PANEL (14) creatinine 0.65 mg/dL 0.76-1 .27 below low normal Not Available [facility] [address] [place] [address], [address], 07/21/2024 22:07:32 07/21/19 25 07/21/2024 COMP. METAB OLIC PANEL (14) eGFR 116 >=60 Units for eGFR value s are mL/mi n/1.7 3 The eGFR Calcu latio n has not been valid ated for patie nts under the age of 18. If test resul ts are displ ayed for a patie nt under the age of 18, disre cassi that value . Not Available [facility] [address] [place] [address], [address], 07/21/2024 22:07:32 07/21/19 25 07/21/2024 COMP. METAB OLIC PANEL (14) BUN/creatini ne ratio 22 9-20 above high normal Not Available [facility] [address] [place] [address], [address], 07/21/2024 22:07:32 07/21/19 25 07/21/2024 COMP. METAB OLIC PANEL (14) sodium 142 mmol/ L 134-[address] [facility] [address] [place] [address], [address], 07/21/2024 22:07:32 07/21/19 25 07/21/2024 COMP. METAB OLIC PANEL (14) potassium 4.5 mmol/ L 3.5-5. [address] [facility] [address] [place] [address], [address], 07/21/2024 22:07:32 07/21/19 25 07/21/2024 COMP. METAB OLIC PANEL (14) chloride 105 mmol/ L 96-[address] [facility] [address] [place] [address], [address], 07/21/2024 22:07:32 07/21/19 25 07/21/2024 COMP. METAB OLIC PANEL (14) carbon dioxide, total 24 mmol/ L 20-[address] [facility] [address] [place] [address], [address], 07/21/2024 22:07:32 07/21/19 25 07/21/2024 COMP. METAB OLIC PANEL (14) calcium 9.9 mg/dL 8.7-[address] [facility] [address] [place] [address], [address], 07/21/2024 22:07:32 07/21/19 25 07/21/2024 COMP. METAB OLIC PANEL (14) protein, total 7.7 g/dL 6.0-8. [address] [facility] [address] [place] [address], [address], 07/21/2024 22:07:32 07/21/19 25 07/21/2024 COMP. METAB OLIC PANEL (14) albumin 4.8 g/dL 4.1-5. [address] [facility] [address] [place] [address], [address], 07/21/2024 22:07:32 07/21/19 25 07/21/2024 COMP. METAB OLIC PANEL (14) globulin, total 2.9 g/dL 1.5-4. [address] [facility] [address] [place] [address], [address], 07/21/2024 22:07:32 07/21/19 25 07/21/2024 COMP. METAB OLIC PANEL (14) A/G ratio 2.0 1.2-2. [address] [facility] [address] [place] [address], [address], 07/21/2024 22:07:32 07/21/19 25 07/21/2024 COMP. METAB OLIC PANEL (14) bilirubin, total 0.5 mg/dL 0.0-1. [address] [facility] [address] [place] [address], [address], 07/21/2024 22:07:32 07/21/19 25 07/21/2024 COMP. METAB OLIC PANEL (14) alkaline phosphatase 108 IU/L 44-121 Not Available [facility] [address] [place], [address], 07/21/2024 22:07:32 07/21/19 25 07/21/2024 COMP. METAB OLIC PANEL (14) AST (SGOT) 26 IU/L 0-40 Not Available [facility] [address] [place], [address], 07/21/2024 22:07:32 07/21/19 25 07/21/2024 COMP. METAB OLIC PANEL (14) ALT (SGPT) 45 IU/L 0-44 above high normal Not Available [facility] [address] [place], [address], 07/21/2024 22:07:32 07/21/19 25 07/21/2024 CBC WITH DIFFE RENTI AL/PL ATELE T WBC 7.6 x10e3 /uL 3.4-[address] [facility] [address] [place], [address], 07/21/2024 22:07:33 07/21/19 25 07/21/2024 CBC WITH DIFFE RENTI AL/PL ATELE T RBC 5.91 x10e6 /uL 4.14-5 .80 above high normal Not Available [facility] [address] [place], [address], 07/21/2024 22:07:33 07/21/19 25 07/21/2024 CBC WITH DIFFE RENTI AL/PL ATELE T hemoglobin 16.6 g/dL 13.0-[address] [facility] [address] [place], [address], 07/21/2024 22:07:33 07/21/19 25 07/21/2024 CBC WITH DIFFE RENTI AL/PL ATELE T hematocrit 52.1 % 37.5-5 1.0 above high normal Not Available [facility] [address] [place], [address], 07/21/2024 22:07:33 07/21/19 25 07/21/2024 CBC WITH DIFFE RENTI AL/PL ATELE T MCV 88 fL 79-[address] [facility] [address] [place], [address], 07/21/2024 22:07:33 07/21/1907/21/2024 CBC WITH DIFFE RENTI AL/PL ATELE T MCH 28.1 pg 26.6-[address] [facility] [address] [place], [address], 07/21/2024 22:07:33 07/21/19 25 07/21/2024 CBC WITH DIFFE RENTI AL/PL ATELE T MCHC 31.9 g/dL 31.5-[address] [facility] [address] [place], [address], 07/21/2024 22:07:33 07/21/19 25 07/21/2024 CBC WITH DIFFE RENTI AL/PL ATELE T RDW 13.7 % 11.5-[address] [facility] [address] [place], [address], 07/21/2024 22:07:33 07/21/19 25 07/21/2024 CBC WITH DIFFE RENTI AL/PL ATELE T platelets 219 x10e3 /uL 150-[address] [facility] [address] [place], [address], 07/21/2024 22:07:33 07/21/19 25 07/21/2024 CBC WITH DIFFE RENTI AL/PL ATELE T neutrophils 42 % notest b. Not Available [facility] [address] [place], [address], 07/21/2024 22:07:33 07/21/19 25 07/21/2024 CBC WITH DIFFE RENTI AL/PL ATELE T lymphs 44 % notest b. Not Available [facility] [address] [place], [address], 07/21/2024 22:07:33 07/21/19 25 07/21/2024 CBC WITH DIFFE RENTI AL/PL ATELE T monocytes 10 % notest b. Not Available [facility] [address] [place], [address], 07/21/2024 22:07:33 07/21/19 25 07/21/2024 CBC WITH DIFFE RENTI AL/PL ATELE T eos 4 % notest b. Not Available [facility] [address] [place], [address], 07/21/2024 22:07:33 07/21/19 25 07/21/2024 CBC WITH DIFFE RENTI AL/PL ATELE T basos 1 % notest b. Not Available [facility] [address] [place], [address], 07/21/2024 22:07:33 07/21/19 25 07/21/2024 CBC WITH DIFFE RENTI AL/PL ATELE T neutrophils (absolute) 3.2 x10e3 /uL 1.4-7. [address] [facility] [address] [place], [address], 07/21/2024 22:07:33 07/21/19 25 07/21/2024 CBC WITH DIFFE RENTI AL/PL ATELE T lymphs (absolute) 3.3 x10e3 /uL 0.7-3. 1 above high normal Not Available [facility] [address] [place], [address], 07/21/2024 22:07:33 07/21/19 25 07/21/2024 CBC WITH DIFFE RENTI AL/PL ATELE T monocytes(ab solute) 0.7 x10e3 /uL 0.1-0. [address] [facility] [address] [place], [address], 07/21/2024 22:07:33 07/21/19 25 07/21/2024 CBC WITH DIFFE RENTI AL/PL ATELE T eos (absolute) 0.3 x10e3 /uL 0.0-0. [address] [facility] [address] [place], [address], 07/21/2024 22:07:33 07/21/19 25 07/21/2024 CBC WITH DIFFE RENTI AL/PL ATELE T baso (absolute) 0.0 x10e3 /uL 0.0-0. [address] [facility] [address] [place], [address], 07/21/2024 22:07:33 07/21/19 25 07/21/2024 CBC WITH DIFFE RENTI AL/PL ATELE T immature granulocytes 0.5 % notest b. Not Available [facility] [address] [place], [address], 07/21/2024 22:07:33 07/21/19 25 07/21/2024 CBC WITH DIFFE RENTI AL/PL ATELE T immature grans (abs) 0.0 x10e3 /uL 0.0-0. [address] [facility] [address] [place], [address], 07/21/2024 22:07:33 07/21/19 25 07/21/2024 CBC WITH DIFFE RENTI AL/PL ATELE T NRBC 0 % 0-[address] [facility] [address] [place], [address], 07/21/2024 22:07:33 07/21/19 25 07/22/2024 ALBUM IN/CR EATIN INE RATIO ,URIN E creatinine, urine 121.6 mg/dL notest ab. Not Available [facility] ([facility]) [address] [facility], [place], [address], 07/22/2024 11:14:56 07/21/19 25 07/22/2024 ALBUM IN/CR EATIN INE RATIO ,URIN E albumin, urine 18.3 ug/mL notest ab. Not Available [facility] ([facility]) [address] [facility], [place], [address], 07/22/2024 11:14:56 07/21/19 25 07/22/2024 ALBUM IN/CR EATIN INE RATIO ,URIN E alb/creat ratio 15 mg/g_ creat 0-29 Olga l: 0 - 29 Moder ately incre ased: 30 - 300 Sever rita incre ased: >300 Not Available [facility] ([facility]) [address] [facility], [place], [address], 07/22/2024 11:14:56 07/21/19 25 07/22/2024 TSH RFX ON ABNOR MAL TO FREE T4 TSH 1.250 uIU/m L 0.450- 4.500 Not Available [facility] ([facility]) [address] [facility], [place], [address], 07/22/2024 11:14:58 07/21/1907/22/2024 PROST ATE-S PECIF IC AG prostate specific Ag 0.1 NG/mL 0.0-4. 0 Micki ECLIA metho dolog y. Accor ding to the Ameri can [employer] iatio n, Serum PSA shoul d decre ase and remai n at undet ectab le level s after radic al prost atect doc. The AUA defin es bioch emica l recur rence as an initi al PSA value 0.2 ng/mL or great er follo wed by a subse quent confi rmato ry PSA value 0.2 ng/mL or great er. Value s obtai perla with diffe rent assay metho ds or kits canno t be used inter tello eanormay . Resul ts canno t be inter prete d as absol diane evide nce of the prese nce or absen ce of nathalia paige se. Not Available [facility] ([facility]) [address] [facility], [place], [address], 07/22/2024 11:14:59 07/21/19 25 07/23/2024 URINE CULTU RE,CO MPREH ENSIV E urine culture,comp rehensive FINAL REPORT Not Available [facility] ([facility]) [address] [facility], [place], [address], 07/23/2024 21:07:22 07/21/19 25 07/23/2024 URINE CULTU RE,CO MPREH ENSIV E result 1 COMMEN T No growt h in 36 - 48 hours . Not Available [facility] ([facility]) [address] [facility], [place], [address], 07/23/2024 21:07:22 07/21/19 25 07/21/2024 HbA1c (hemo globi n A1c), blood HbA1c 6.8 Not Available In-Office Order Internal Use Only DO Not Attach Compendium DO Not Attach Compendium, Do Not Delete/merge, 07/21/2024 10:33:56 07/21/19 25 07/21/2024 urina lysis , dipst ick Leukocytes Negati ve Not Available In-Office Order Internal Use Only DO Not Attach Compendium DO Not Attach Compendium, Do Not Delete/merge, 07/21/2024 10:33:54 07/21/19 25 07/21/2024 urina lysis , dipst ick Nitrite negati ve Not Available In-Office Order Internal Use Only DO Not Attach Compendium DO Not Attach Compendium, Do Not Delete/merge, 07/21/2024 10:33:54 07/21/19 25 07/21/2024 urina lysis , dipst ick Urobilinogen .2 Not Available In-Of fice Order Internal Use Only DO Not Attach Compendium DO Not Attach Compendium, Do Not Delete/merge, 07/21/2024 10:33:54 07/21/19 25 07/21/2024 urina lysis , dipst ick Protein Negati ve Not Available In-Office Order Internal Use Only DO Not Attach Compendium DO Not Attach Compendium, Do Not Delete/merge, 07/21/2024 10:33:54 07/21/19 25 07/21/2024 urina lysis , dipst ick pH 5.5 Not Available In-Office Order Internal Use Only DO Not Attach Compendium DO Not Attach Compendium, Do Not Delete/merge, 07/21/2024 10:33:54 07/21/19 25 07/21/2024 urina lysis , dipst ick Blood Modera te Not Available In-Office Order Internal Use Only DO Not Attach Compendium DO Not Attach Compendium, Do Not Delete/merge, 07/21/2024 10:33:54 07/21/19 25 07/21/2024 urina lysis , dipst ick Specific [place] 1.025 Not Available In-Off ice Order Internal Use Only DO Not Attach Compendium DO Not Attach Compendium, Do Not Delete/merge, 07/21/2024 10:33:54 07/21/1907/21/2024 urina lysis , dipst ick Ketone Negati ve Not Available In-Office Order Internal Use Only DO Not Attach Compendium DO Not Attach Compendium, Do Not Delete/merge, 07/21/2024 10:33:54 07/21/19 25 07/21/2024 urina lysis , dipst ick Bilirubin Negati ve Not Available In-Office Order Internal Use Only DO Not Attach Compendium DO Not Attach Compendium, Do Not Delete/merge, 07/21/2024 10:33:54 07/21/1907/21/2024 urina lysis , dipst ick Glucose Negati ve Not Available In-Office Order Internal Use Only DO Not Attach Compendium DO Not Attach Compendium, Do Not Delete/merge, 07/21/2024 10:33:54 07/21/19 25 07/21/2024 urina lysis , dipst ick Appearance Clear Not Available In-Offi ce Order Internal Use Only DO Not Attach Compendium DO Not Attach Compendium, Do Not Delete/merge, 07/21/2024 10:33:54 07/21/19 25 07/21/2024 urina lysis , dipst ick Color Dark Yellow Not Available In-Office Order Internal Use Only DO Not Attach Compendium DO Not Attach Compendium, Do Not Delete/merge, [id number] 07/21/2024 10:33:54 08/20/19 25 08/20/2024 LIPID PANEL cholesterol, total 83 mg/dL 100-19 9 below low normal Not Available [facility] [address] [place], [address], 08/20/2024 22:07:06 08/20/19 25 08/20/2024 LIPID PANEL triglyceride s 81 mg/dL 0-149 Not Available [facility] Department [address] [place], [address], 08/20/2024 22:07:06 08/20/19 25 08/20/2024 LIPID PANEL HDL cholesterol 31 mg/dL 40-999 below low normal Not Available [facility] Department [address] [place], [address], 08/20/2024 22:07:06 08/20/19 25 08/20/2024 LIPID PANEL VLDL cholesterol lizzeth 16 mg/dL 5-40 Not Available [facility] Department [address] [place], [address], 08/20/2024 22:07:06 08/20/19 25 08/20/2024 LIPID PANEL LDL chol calc ([facility]) 46 mg/dL 0-99 Not Available [facility] Department [address] [place], [address], 08/20/2024 22:07:06 08/20/19 25 08/20/2024 HbA1c (hemo globi n A1c), blood HbA1c 6.3 Not Available In-Office Order Internal Use Only DO Not Attach Compendium DO Not Attach Compendium, Do Not Delete/merge, [id number] 08/20/2024 10:11:17 08/20/19 25 08/20/2024 gluco se, finge rstic k, blood Blood Glucose: mg/dl 138 Not Available In-Off ice Order Internal Use Only DO Not Attach Compendium DO Not Attach Compendium, Do Not Delete/merge, [id number] 08/20/2024 10:11:16 07/21/19 25 08/20/2024 krish vermara iverson No observ ation record ed. DARCY In-Office Order Internal Use Only DO Not Attach Compendium DO Not Attach Compendium, Do Not Delete/merge, [id number] 09/08/2024 15:55:42 Result Notes None recorded. Problems Name Problem SNOMED Code Status Onset Date Resolution Date Notes Provider Name and Address Organization Details Recorded Time Body mass index 30+ - obesity 729862062 Active 2022 JAY JAY Herrera Attn: Accountmerritt g,2040 [facility], [place], [place], [address] [place] [address] 2, [facility] - [facility] 3 11:11:18 Benign prostatic hyperplasia 171311713 Active 2022 JAY JAY Herrera Attn: Accountin g,[address]40 [place], [place], [address] [place] [address] 2, [place] - [facility] 3 11:11:18 Chronic gouty arthritis 50524189 Active 2022 JAY JAY Herrera Attn: Accountin g,2040 [place], [place], [address] [place] [address] 2, [place] 3 11:11:18 Mixed hyperlipide darline 879440888 Active 2022 JAY JAY Herrera Attn: Accountin g,2040 [place], [place], [address] [place] [address] 2, [place] 3 11:11:18 Nasal congestion 75720456 Active 2022 JAY JAY Herrera Attn: Accountin g,2040 [place], [address] [place] [address] 2, [place] 3 13:58:40 Ganglion cyst of right wrist 7094706764423 09 Active 2022 JAY JAY Herrera Attn: Accountin g,[address]40 [place], [address], [place] [facility] 3 13:58:40 Neuropathy 455650374 Active 2022 JAY JAY Herrera Attn: Accountmerritt g,2040 [facility], [place], [address], [place] [facility] 3 13:58:40 Carpal tunnel syndrome of right wrist 6170362640860 08 Active 2022 JAY JAY Herrera Attn: Accountin g,2040 [facility], [place], [address], [place] [facility] 3 13:58:40 Paresthesia of hand 642194780 Active 2022 JAY JAY Herrera Attn: Accountmerritt g,2040 [facility], [place], [address], [place] [facility] 3 13:58:40 History of calculus of kidney 735009256 Active 2022 JAY JAY Herrera Attn: Accountmerritt g,2040 [facility], [place], [address], [place] [facility] 4 13:24:43 Kidney stone 77578124 Active 2022 JAY JAY Herrera Attn: Accountmerritt g,2040 [facility], [place], [address], [place] [facility] 4 13:24:43 Essential hypertensio n 25163132 Active 2022 JAY JAY Herrera Attn: Accountin g,2040 [facility], [place], [address], [place] [facility] 4 13:24:43 Bilateral hearing loss 91660146 Active 2023 JAY JAY Herrera Attn: Accountin g,2040 [facility], [place], [address], [place] 4 13:24:43 Obesity 526618738 Active 2023 JAY JAY Herrera Attn: Alissa larsen,2040 [facility], [place], [address], [facility] - SI 4 13:09:19 Mixed anxiety and depressive disorder 675664591 Active 2023 JAY JAY Herrera Attn: Alissa larsen,2040 [facility], [place], [address], [facility] - SI 4 13:09:19 Non-alcohol ic fatty liver 557543219 Active 2023 JAY JAY Herrera Attn: Alissa larsen,2040 [facility], [place], [address], [facility] - [facility] 4 13:09:18 Dyspnea 373809588 Active 2023 JAY JAY Herrera Attn: Alissa larsen,2040 [facility], [place], [address], [facility] - SI 4 13:10:07 Scalp folliculiti s 057101197 Active 2024 JAY JAY Herrera Attn: Alissa larsen,2040 [facility], [place], [address], [facility] - SI 5 10:40:12 Type 2 diabetes mellitus 22091697 Active 2024 JAY JAY Herrera Attn: Alissa larsen,[address] [place], [address], [facility] - SI 5 11:16:32 Problem Notes None recorded. Procedures Surgical History Date Name Laterality Status Provider Name and Address Organization Details Recorded Time 5 Cerumen Removal completed JAY JAY Herrera Attn: Accounting,[address] [place], [address], [facility] 07/21/2024 10:39:06 4 Cerumen Removal completed JAY JAY Herrera Attn: Accounting,[address], [place], [address], [facility] - SI 11/11/2023 18:27:47 3 Cerumen Removal completed JAY JAY Herrera Attn: Accounting,[address], [place], [address], [facility] - SI 01/02/2023 11:40:13 Imaging Results Imaging Date Name Status LastModified by Organiz ation Details LastModified Time 08/20/2024 tympanogram completed DARCY In-Office Ord er Internal Use Only DO Not Attach Compendium DO Not Attach Compendium, Do Not Delete/merge, [id number] 09/08/2024 15:55:42 Procedure Notes None recorded. Medical Equipment None Reported. Allergies No known drug allergies Medications Name Sig Start Date Stop Date Status Note LastModified by Organization Details LastModified Time atorvasta tin 40 mg tablet Take 1 tablet every day by oral route, for choleste rol. 07/29 completed Not Available Not Available Not Available atorvasta tin 80 mg tablet Take 1 tablet every day by oral route at bedtime, for Mixed hyperlip idemia/c holester ol. 2024 active Not Available Not Available Not Avai lable ibuprofen 800 mg tablet TAKE 1 TABLET BY MOUTH EVERY 12 HOURS FOR 10 DAYS active Not Available Not Available No t Available Debrox 6.5 % ear drops INSTILL 5 DROPS INTO AFFECTED EAR(S) BY OTIC ROUTE 2 TIMES PER DAY 11/09 completed Not Available Not Available Not Available allopurin ol 100 mg tablet TAKE TWO TABLETS BY MOUTH EVERY MORNING FOR GOUT active Not Available Not Available No t Available amoxicill in 500 mg tablet TAKE 1 TABLET BY MOUTH EVERY 8 HOURS FOR 10 DAYS 11/09 completed Not Available Not Available Not Available citalopra m 20 mg tablet Take 1 tablet every day by oral route, for anxiety/ depressx ion. 2024 active Not Available Not Available Not Avai lable tamsulosi n 0.4 mg capsule TAKE 1 Capsule BY MOUTH EVERY DAY AT BEDTIME FOR PROSTATE active Not Available Not Available No t Available [employer] AdmissionsTouch Ultra Test strips USE TO TEST BLOOD SUGAR TWICE DAILY EVERY MORNING AND EVERY EVENING active Not Available Not Available No t Available cephalexi n 500 mg capsule TAKE 1 CAPSULE BY MOUTH EVERY 8 HOURS 04/17 completed Not Available Not Available Not Available gabapenti n 300 mg capsule TAKE ONE CAPSULE BY MOUTH THREE TIMES DAILY, IN THE MORNING, AT MID-DAY & AT BEDTIME FOR PAIN MANAGEME NT active Not Available Not Available No t Available methylpre dnisolone 4 mg tablets in a dose pack DIRECTED 01/02 completed Not Available Not Available Not Available fluticaso ne propionat e 50 mcg/actua tion nasal spray,[employer] INSTILL ONE SPRAY IN EACH NOSTRIL EVERY DAY active Not Available Not Available No t Available metformin ER 500 mg tablet,ex tended release 24 hr TAKE 2 TABLETS BY MOUTH ONCE DAILY WITH MEALS FOR DIABETES active Not Available Not Available No t Available doxycycli ne hyclate 100 mg tablet Take 1 tablet twice a day by oral route for 7 days, for blood in urine. 08/20 completed Not Available Not Available Not Available finasteri de 5 mg tablet TAKE 1 Tablet BY MOUTH EVERY DAY AT BEDTIME FOR PROSTATE active Not Available Not Available No t Available Thalitone 15 mg tablet TAKE 1 Tablet BY MOUTH ONCE EVERY DAY FOR BLOOD PRESSURE active Not Available Not Available No t Available ciproflox acin 0.3 %-dexamet hasone 0.1 % ear drops,[employer] INSTILL 4 DROPS INTO AFFECTED EAR(S) BY OTIC ROUTE 2 TIMES PER DAY FOR 7 DAYS 04/20 completed Not Available Not Available Not Available Vascepa 1 gram capsule Take 2 capsules twice a day by oral route, for triglyce rides. 2024 active Not Available Not Available Not Avai lable selenium sulfide 2.5 % lotion APPLY TO WET SCALP BY TOPICAL ROUTE ONCE WEEKLY WORK INTO A FULL LATHER, LEAVE ON SCALP FOR 2-3 MINUTES, RINSE THOROUGH LY, AND THEN PAT DRY 2024 active Not Available Not Available Not Avai lable OneTouch Ultra2 Meter USE DIRECTED active Not Available Not Available No t Available OneTouch Delica Plus Lancet 33 gauge USE TO TEST BLOOD SUGAR TWICE DAILY EVERY MORNING AND EVERY EVENING active Not Available Not Available No t Available allopurin ol 200 mg tablet Take 1 tablet every day by oral route, for gout. 2024 active stopped taking 2 weeks ago Not Available Not Available Not Available Vitals Date Recorded Body height Body mass index (BMI) Body weight Heart rate Body temperature Systolic blood pressure Diastolic blood pressure Provider Name and Address Organization Details Last Updated DateTime 4 162.56 cm 33.2 kg/m2 64832.1 3 g 84 /min 98.6 [degF] 122 mm[Hg] 88 mm[Hg] Erlinda Cottrell RN [facility] 4 12:54:28 Date Recorded Body height Provider Name an d Address Organization Details Last Updated DateTime 12/29/2023 162.56 cm Kelly sosa MA [facility] 12/29/2023 12:34:23 Date Recorded Body height Provider Name an d Address Organization Details Last Updated DateTime 04/20/2024 162.56 cm Kelly sosa MA [facility] 04/20/2024 10:28:39 Date Recorded Body mass index (BMI) Body weight Body temperature Oxygen saturation Oxygen saturation in Arterial blood by Pulse oximetry Heart rate Systolic blood pressure Diastolic blood pressure Provider Name and Address Organization Details Last Updated DateTime 4 35.4 kg/m2 32534.7 8 g 97.7 [degF] 95 % 95 % 70 /min 136 mm[Hg] 90 mm[Hg] Anh giordano MA [facility] SI 10:31:26 Date Recorded Body height Provider Name an d Address Organization Details Last Updated DateTime 07/21/2024 162.56 cm Kelly sosa MA [facility] 07/21/2024 09:50:09 Date Recorded Body mass index (BMI) Body weight Body temperature Oxygen saturation Oxygen saturation in Arterial blood by Pulse oximetry Heart rate Systolic blood pressure Diastolic blood pressure Provider Name and Address Organization Details Last Updated DateTime 5 36.2 kg/m2 48185.9 9 g 97.8 [degF] 95 % 95 % 106 /min 138 mm[Hg] 88 mm[Hg] Anh giordano MA [place] [facility] 5 09:55:59 Date Recorded Body height Provider Name an d Address Organization Details Last Updated DateTime 08/20/2024 162.56 cm Kelly sosa MA [facility] 08/20/2024 10:10:38 Date Recorded Body mass index (BMI) Body weight Body temperature Oxygen saturation Oxygen saturation in Arterial blood by Pulse oximetry Heart rate Systolic blood pressure Diastolic blood pressure Provider Name and Address Organization Details Last Updated DateTime 34.4 kg/m2 67929.8 7 g 98.1 [degF] 97 % 97 % 76 /min 122 mm[Hg] 84 mm[Hg] Anh giordano MA [facility] SI 10:14:22 Social History Question Answer Notes LastModified by Organizat ion Details LastModified Time Tobacco Smoking Status Never Smoker Anh Paez MA [facility] 11/15/2022 14:40:42 Do You Have An Advance Directive? No Information not available 04/17/2023 What Is Your Level Of Alcohol Consumption? None Information not available 11/15/2022 Are You Blind Or Do You Have Difficulty Seeing? No Information not available 11/15/2022 What Is Your Level Of Caffeine Consumption? Occasional Information not available 11/15/2022 In The 14 Days Before Symptom Onset, Have You Had Close Contact With A Laboratory-confir med COVID-19 While That Case Was Ill? No Information not available 11/15/2022 In The 14 Days Before Symptom Onset, Have You Had Close Contact With A Person Who Is Under Investigation For COVID-19 While That Person Was Ill? No Information not available 11/15/2022 Have You Been To An Area Known To Be High Risk For COVID-19? No Information not available 11/15/2022 Are You Currently Employed? Yes Information not available 11/15/2022 Are You Deaf Or Do You Have Serious Difficulty Hearing? No Information not available 11/15/2022 What Type Of Diet Are You Following? 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 No Information not available 11/15/2022 What Was The Date Of Your Most Recent Tobacco Screening? 08/20/2024 Information not available 08/20/2024 How Many Children Do You Have? 5 Information not available 11/15/2022 Do You Use Protection During Sex? Always Information not available 11/15/2022 What Is Your Relationship Status? Domestic Partner Information not available 11/15/2022 Do You Use Your Seat Belt Or Car Seat Routinely? Yes Information not available 11/15/2022 Are You Sexually Active? Yes Information not available 11/15/2022 Do You Have Smoke And Carbon Monoxide Detectors In Your Home? Yes Information not available 11/15/2022 Are You Passively Exposed To Smoke? No Information no t available 11/15/2022 Do You Feel Stressed (tense, Restless, Nervous, Or Anxious, Or Unable To Sleep At Night)? [id number] Information not available 11/15/2022 Do You Use Any Illicit Or Recreational Drugs? No Information not available 11/15/2022 Do You Use Sunscreen Routinely? No Information not available 11/15/2022 Has Tobacco Cessation Counseling Been Provided? No Information not available 11/15/2022 Sex: Male Functional Status Question Answer Note LastModified by Organization D etails LastModified Time Are you able to care for yourself? Yes Information n ot available 11/15/2022 What is your exercise level? None Information not available 11/15/2022 Mental Status None recorded. Family History Relationship Description Onset Age of this Age Resolved Age Notes LastModified by Organization Details LastModified Time Father Diabetes mellitus [email or web address] Not available 14:40:15 Mother Hypertensive disorder [email or web address] Not available 14:40:20 Sister Mixed anxiety and depressive disorder [email or web address] Not available 2023 13:54:21 Medical History Condition Response Muscle, Joint, or Bone Problems Y Other Y Kidney or Bladder Problems Y High Cholesterol Y Immunizations Vaccine Type Date Status Note Provider Nam e and Address Organization Details Recorded Time Tdap 3 completed ASLMA Aguilar MELISSA Cailin [facility] 11/15/2022 17:21:50 Influenza, split virus, trivalent, preservative 4 completed SALMA Aguilar MELISSA Cailin [facility] 04/21/2024 12:20:11 Past Encounters Encounter ID Performer Location Encounter Start Date Encounter Closed Date Diagnosis/Indication Diagnosis SNOMED-CT Code Diagnosis ICD10 Code Diagnosis Note [id number] Lesvia Wiseman [facility] [address] [place] [address] 11/15/2022 14:30:23 11/18/2022 11:26:29 Adult health examination 611434291 Z00.01 47 y/o HM presents for general check up. The patient has a history of mixed hyperlipid emia, gouty arthritis, BPH and elevated blood pressure. He voices currently not taking any medication s but has been on medication for his chronic medical problems in the past. He reports having labs done 3 months ago in [place], [place] which were abnormal. He denies any CP, SOB, edema, headaches, syncope or pre-syncop e. Body mass index 30+ - obesity 684978145 Z68.31 BMI 31.8Ht 5' 4 Healthy weight -9 44 lbs Increased blood pressure 00092019 R03.0 140/100 L armreduce salt in your diet 50-60 minutes of aerobic physical activity 5-6 time per week lose weight 5-20% of current body weight if B/P remains elevated will start B/P meds Depression screening 171 746732 Z13.31 PHQ 2-9 negative Mental hea [facility] screening 197158321 Z13.39 ZITA-7 negative Family his tory of diabetes mellitus in first degree relative 861271344 Z83.3 father Mixed hyperlipidemia 267 787956 E78.2 [facility] 220[facility] 563HDL ?LDL 380Avoid all breads, potatoes, cereal, pasta, rice, margarine, refined sugars, milk yogurt, ice cream, juices, soda (including diet), beer, and manmade or manufactur ed desserts. Enjoy steak, fish, chicken (no skin), pork, butter, vegetables , beans, nuts, whole eggs, cheese (low fat or skim), cream in your coffee. Chronic go uty arthritis 21797279 M1A.00X0 Dx in [place] Benign pro static hyperplasia 519206517 N40.0 Administra tion of diphtheria, pertussis, and tetanus vaccine 057005593 Z23 Nasal congestion 5558302 0 R09.81 [id number] [place] [address] [address] 4 12/03/2022 12:18:51 12/04/2022 13:34:07 Body mass index 30+ - obesity 094118922 Z68.31 BMI 32.6Ht 5' 4 Healthy weight horiu772-3 44 lbs Paresthesia of hand 3090 53204 R20.2 Depression screening 171 762345 Z13.31 PHQ 2-9 negative Mental hea [facility] screening 284041854 Z13.39 ZITA-7 negative Neuropathy 849412714 G62 .9 R foot dorsum 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 8120961656 53274 G56.01 wear [facility]intexer cises [id number] [facility] [address] 4 01/02/2023 10:42:01 01/06/2023 11:03:47 Body mass index 30+ - obesity 620549370 Z68.31 BMI 32.2Ht 5' 4 Healthy weight yderz956-6 44 lbs Increased blood pressure 11277195 R03.0 110/80 L arm-normal nowreduce salt in your diet 50-60 minutes of aerobic physical activity 5-6 time per week lose weight 5-20% of current body weight if B/P remains elevated will start B/P meds Benign pro static hyperplasia 228796901 N40.0 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 1567569184 39864 G56.01 wear splintexer cises Paresthesia of hand 3090 71441 R20.2 Neuropathy 047273333 G62 .9 R foot dorsumbett er with gabapentin Depression screening 171 739590 Z13.31 PHQ 2-9 negative Mental hea [facility] screening 448488669 Z13.39 ZITA-7 negative Nasal congestion 9431995 0 R09.81 resolved Mixed hyperlipidemia 267 688802 E78.2 08/14/2022 in [facility] 220trig 563HDL ?LDL 380 3ch o 199trig 272HDL 35.4LDL 116.2Avoid all breads, potatoes, cereal, pasta, rice, margarine, refined sugars, milk yogurt, ice cream, juices, soda (including diet), beer, and manmade or manufactur ed desserts. Enjoy steak, fish, chicken (no skin), pork, butter, vegetables , beans, nuts, whole eggs, cheese (low fat or skim), cream in your coffee. Chronic go uty arthritis 13868231 M1A.00X0 Dx in [place] Ganglion c yst of right wrist 9308831626 45257 M67.431 R ganglion cyst Bilateral hearing loss 46924609 H91.93 Impacted c erumen of bilateral ears 0361297171 257341 H61.23 [id number] Lesvia Wiseman, [facility] [address] [place] [address] 04/17/2023 11:53:42 04/18/2023 12:57:17 Body mass index 30+ - obesity 557643412 Z68.31 BMI 33.8Ht 5' 4 Healthy weight tryoz978-7 44 lbs Mixed hyperlipidemia 267 997015 E78.2 08/14/2022 in [facility] 220trig 563HDL ?LDL 380 3ch o 199trig 272HDL 35.4LDL 116.2Avoid all breads, potatoes, cereal, pasta, rice, margarine, refined sugars, milk yogurt, ice cream, juices, soda (including diet), beer, and manmade or manufactur ed desserts. Enjoy steak, fish, chicken (no skin), pork, butter, vegetables , beans, nuts, whole eggs, cheese (low fat or skim), cream in your coffee. 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 3143459126 03194 G56.01 wear splintexer cises Neuropathy 350409921 G62 .9 R foot dorsumbett er with gabapentin Depression screening 171 117086 Z13.31 PHQ 2-9 negative Mental hea [facility] screening 706683442 Z13.39 ZITA-7 negative Ganglion c yst of right wrist 1964270441 20720 M67.431 R ganglion cyst-resol vedreferre d to general surgeon Bilateral hearing loss 66437338 H91.93 sent for audiology referral Administra tion of influenza vaccine 73568542 Z23 Dysuria 84186420 R30.0 UA dip wnl History of calculus of kidney 729272269 Z87.[address] of kidneys in [place] in 2021 was told has multiple small stonesdrin k a lot of water Kidney stone 19384188 N2 0.0 Essential hypertension 98615399 I10 BP Goal: {{Less than 140/90* Le ss than 150/90}}BP Controlled : {{yes no*} }Healthy Weight: {{4'10= 91-118 lbs 4'11= 94-123 lbs 5'= 97-127 lbs 5'1= 100-131 lbs 5'2= 104-135 5' 3= 107-140 lbs 5'4= 110-144 lbs* 5'5= 115-149 lbs 5'6= 118-154 lbs 5'7= 121-158 lbs 5'8= 125-163 lbs 5'9= 128-168 lbs 5'10= 132-173 lbs 5'11= 136-178 lbs 6'= 140-183 lbs 6'1= 144-188 lbs 6'2= 148-193 lbs 6'3= 152-199 lbs 6'4= 156-204 lbs}}Discu ssed: Low sodium balanced diet, moderate exercise at least 3-4 times per week for an average of 40 minutesNex t Visit: {{1 2 3* 4 5 6 7 8 9 10 11 12} }{{week(s) month(s)* }}will start chlorthali done 15mg daily [id number] Lesvia Wiseman [facility] [address] [place] [address] 07/17/2023 14:08:26 07/18/2023 15:38:15 Essential hypertension 33346386 I10 BP Goal: {{Less than 140/90* Le ss than 150/90}}BP Controlled : {{yes* no} }Healthy Weight: {{4'10= 91-118 lbs 4'11= 94-123 lbs 5'= 97-127 lbs 5'1= 100-131 lbs 5'2= 104-135 5' 3= 107-140 lbs 5'4= 110-144 lbs* 5'5= 115-149 lbs 5'6= 118-154 lbs 5'7= 121-158 lbs 5'8= 125-163 lbs 5'9= 128-168 lbs 5'10= 132-173 lbs 5'11= 136-178 lbs 6'= 140-183 lbs 6'1= 144-188 lbs 6'2= 148-193 lbs 6'3= 152-199 lbs 6'4= 156-204 lbs}}Discu ssed: Low sodium balanced diet, moderate exercise at least 3-4 times per week for an average of 40 minutesNex t Visit: {{1 2 3* 4 5 6 7 8 9 10 11 12} }{{week(s) month(s)* }}will start chlorthali done 15mg daily Mixed hyperlipidemia 267 014967 E78.2 08/14/2022 [facility] 220trig 563HDL ?LDL 380 3ch o 199trig 272HDL 35.4LDL 116.2Avoid all breads, potatoes, cereal, pasta, rice, margarine, refined sugars, milk yogurt, ice cream, juices, soda (including diet), beer, and manmade or manufactur ed desserts. Enjoy steak, fish, chicken (no skin), pork, butter, vegetables , beans, nuts, whole eggs, cheese (low fat or skim), cream in your coffee. 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 9888993413 89632 G56.01 wear splintexer cises Paresthesia of hand 3090 38585 R20.2 Neuropathy 051680860 G62 .9 R foot dorsumbett er with gabapentin Ganglion c yst of right wrist 1485037969 27143 M67.431 R ganglion cyst-resol vedreferre d to general surgeon Bilateral hearing loss 81187247 H91.93 sent for audiology referral Depression screening 171 254263 Z13.31 PHQ 2-9 negative Mental hea [facility] screening 327110164 Z13.39 ZITA-7 negative Kidney stone 27585989 N2 0.0 History of calculus of kidney 270288287 Z87.[address] of kidneys in [place] in 2021 was told has multiple small stonesdrin k a lot of watersent to urologist on Kidney ultrasound shows calculi on LPatient reminded to make appt Steatosis of liver 1007 K76.0 Stay at a healthy weight. Or if you need to, slowly get to a healthy weight. Control your cholestero l. . You might try getting active, taking medicines, and making healthy changes to your diet. Eat healthy foods. This includes fruits, vegetables , lean meats and dairy, and whole grains. If you have diabetes, keep your blood sugar at your target level. Get at least 30 minutes of exercise on most days of the week. Walking is a good choice. You also may want to do other activities , such as running, swimming, cycling, or playing tennis or team sports. Limit alcohol, or do not drink. Alcohol can damage the liver and cause health problems. [id number] PETER PECK NP [address] [address] 08/08/2023 19:11:58 08/11/2023 10:35:07 Obesity 696202114 E66.9 Viral syndrome 612111051 B34.9 Impacted c erumen of bilateral ears 0850950410 999970 H61.23 [id number] Lesvia Wiseman, [facility] [address] [place] [address] 11/05/2023 12:15:21 11/13/2023 19:42:35 Follow-up visit 891125005 Z09 Patient presents for follow up ER visit on 09/26/2023 and 09/29/2023 for SOB. Rodger Almonte is a pleasant 48 y.o. male with past medical history of HLD, HTN On 09/26/2023, the patient presented to ER with acute dyspnea but had a negative work up which included labs, CT of chest and covid/flu/ strep testing. His Ct chest showed old granulomat ous disease. He was treated with an antibiotic and discharged . He then presented to [facility] with shortness of breath 3 days late on 09/29/2023. Pt had had intermitte nt shortness of breath for the past 8-9 days. He complained of pleuritic discomfort . Denied chest pain at this time but states it's intermitte nt in nature. Denies fevers, chills, cough, congestion , abd pain, vomiting or diarrhea. He had multiple labs and CT chest. His CT Chest PE (CTA) Abdomen Pelvis W Contrast showed: No CT evidence for pulmonary embolus.Sm all bilateral renal cysts. 1 cm nonobstruc ting stone right kidney. Dyspnea 600669345 R06.[address] chest showed old granulomat ous disease. Depression screening 171 617465 Z13.31 PHQ 2-9 +++psychia trist/psyc hotherapis t listpatien t to seek/make his own appointmen t [place] Mental hea lt screening 088269694 Z13.39 ZITA-7 + Obesity 545085184 E66.9 BMI 33 Mixed anxi ety and depressive disorder 168629185 F41.8 Has started taking calm challenge once dailyPure Magnesium glycinate once daily [id number] Lesvia Wiseman [facility] [address] [place] [address] 11/10/2023 12:39:02 11/14/2023 13:18:57 Body mass index 30+ - obesity 177907525 Z68.31 BMI 33.2Ht 5' 4 Healthy weight pmsoh604-2 44 lbs Essential hypertension 58046282 I10 BP Goal: {{Less than 140/90* Le ss than 150/90}}BP Controlled : {{yes* no} }Healthy Weight: {{4'10= 91-118 lbs 4'11= 94-123 lbs 5'= 97-127 lbs 5'1= 100-131 lbs 5'2= 104-135 5' 3= 107-140 lbs 5'4= 110-144 lbs* 5'5= 115-149 lbs 5'6= 118-154 lbs 5'7= 121-158 lbs 5'8= 125-163 lbs 5'9= 128-168 lbs 5'10= 132-173 lbs 5'11= 136-178 lbs 6'= 140-183 lbs 6'1= 144-188 lbs 6'2= 148-193 lbs 6'3= 152-199 lbs 6'4= 156-204 lbs}}Discu ssed: Low sodium balanced diet, moderate exercise at least 3-4 times per week for an average of 40 minutesNex t Visit: {{1 2 3* 4 5 6 7 8 9 10 11 12} }{{week(s) month(s)* }}will start chlorthali done 15mg daily Mixed hyperlipidemia 267 357192 E78.2 [facility] 563[facility] ?LDL 380 3ch o 199trig 272HDL 35.4LDL 116.2Avoid all breads, potatoes, cereal, pasta, rice, margarine, refined sugars, milk yogurt, ice cream, juices, soda (including diet), beer, and manmade or manufactur ed desserts. Enjoy steak, fish, chicken (no skin), pork, butter, vegetables , beans, nuts, whole eggs, cheese (low fat or skim), cream in your coffee. 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 [id number] 20752 G56.01 wear splintexer cises Paresthesia of hand 3090 71530 R20.2 Neuropathy 354806284 G62 .9 R foot dorsumbett er with gabapentin Ganglion c yst of right wrist [id number] 98086 M67.431 R ganglion cyst-resol vedreferre d to general surgeon Bilateral hearing loss 03161614 H91.93 sent for audiology referral Depression screening 171 683677 Z13.31 PHQ 2-9 negative Mental hea lth screening 023289504 Z13.39 ZITA-7 negative Kidney stone 12247861 N2 0.0 History of calculus of kidney 580268839 Z87.[address] of kidneys in [place] in 2021 was told has multiple small stonesdrin k a lot of watersent to urologist on Kidney ultrasound shows calculi on LPatient reminded to make appt Steatosis of liver 1007 K76.0 Stay at a healthy weight. Or if you need to, slowly get to a healthy weight. Control your cholestero l. . You might try getting active, taking medicines, and making healthy changes to your diet. Eat healthy foods. This includes fruits, vegetables , lean meats and dairy, and whole grains. If you have diabetes, keep your blood sugar at your target level. Get at least 30 minutes of exercise on most days of the week. Walking is a good choice. You also may want to do other activities , such as running, swimming, cycling, or playing tennis or team sports. Limit alcohol, or do not drink. Alcohol can damage the liver and cause health problems. Impacted c erumen of bilateral ears [id number] 870580 H61.23 kane ear irrigation Acute otitis externa 302 35446 H60.509 Non-alcoho lic fatty liver 422170112 K76.0 [id number] [facility] [address] [place] [address] 12/29/2023 12:31:10 01/01/2024 08:52:41 Mixed anxiety and depressive disorder 356619662 F41.8 Has started taking calm challenge once dailyPure Magnesium glycinate once dailyCital opram 20mg daily is helping wants to continue it Obesity 989718203 E66.9 BMI 33.2 Depression screening 171 115085 Z13.31 PHQ 2-9 +++psychia trist/psyc hotherapis t listpatien t to seek/make his own appointmen t [place] Mental hea [facility] screening 967827576 Z13.39 ZITA-7 + [id number] [facility] [address] [place] [address] 04/20/2024 10:26:17 04/22/2024 09:27:40 Mixed anxiety and depressive disorder 026695005 F41.8 Has started taking calm challenge once dailyPure Magnesium glycinate once dailyCital opram 20mg daily is helping wants to continue it Benign pro static hyperplasia 895347106 N40.0 11/15/2022 PSA 0.4Had ultrasound of prostate in [place] Mixed hyperlipidemia 267 335440 E78.2 [facility] 563HDL ?LDL 380 3ch o 199trig 272HDL 35.4LDL 116.2 11/10/2023 cho 242trig 350HDL 41LDL 179Avoid all breads, potatoes, cereal, pasta, rice, margarine, refined sugars, milk yogurt, ice cream, juices, soda (including diet), beer, and manmade or manufactur ed desserts. Enjoy steak, fish, chicken (no skin), pork, butter, vegetables , beans, nuts, whole eggs, cheese (low fat or skim), cream in your coffee. Essential hypertension 05438466 I10 BP Goal: {{Less than 140/90* Le ss than 150/90}}BP Controlled : {{yes* no} }Healthy Weight: {{4'10= 91-118 lbs 4'11= 94-123 lbs 5'= 97-127 lbs 5'1= 100-131 lbs 5'2= 104-135 5' 3= 107-140 lbs 5'4= 110-144 lbs* 5'5= 115-149 lbs 5'6= 118-154 lbs 5'7= 121-158 lbs 5'8= 125-163 lbs 5'9= 128-168 lbs 5'10= 132-173 lbs 5'11= 136-178 lbs 6'= 140-183 lbs 6'1= 144-188 lbs 6'2= 148-193 lbs 6'3= 152-199 lbs 6'4= 156-204 lbs}}Discu ssed: Low sodium balanced diet, moderate exercise at least 3-4 times per week for an average of 40 minutesNex t Visit: {{1 2 3* 4 5 6 7 8 9 10 11 12} }{{week(s) month(s)* }}will start chlorthali done 15mg daily Chronic go uty arthritis 98681547 M1A.00X0 Dx in [place] Body mass index 30+ - obesity 644369892 Z68.31 BMI 35.4Ht 5' 4 Healthy weight ytzvy040-5 44 lbs Obesity 194549898 E66.9 BMI 35.4 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 Or if you need to, slowly get to a healthy weight. Control your cholestero l. . You might try getting active, taking medicines, and making healthy changes to your diet. Eat healthy foods. This includes fruits, vegetables , lean meats and dairy, and whole grains. If you have diabetes, keep your blood sugar at your target level. Get at least 30 minutes of exercise on most days of the week. Walking is a good choice. You also may want to do other activities , such as running, swimming, cycling, or playing tennis or team sports. Limit alcohol, or do not drink. Alcohol can damage the liver and cause health problems. Depression screening 171 800788 Z13.31 PHQ 2-9 negative Administra tion of influenza vaccine 23766811 Z23 Nasal congestion 2932077 0 R09.81 samples of [facility] [id number] [facility] [address] [place] [address] 07/21/2024 09:48:46 07/22/2024 14:00:17 Body mass index 30+ - obesity 495816398 Z68.31 BMI 36.2Ht 5' 4 Healthy weight -3 44 lbs Mixed hyperlipidemia 267 481528 E78.2 08/14[facility] 563HDL ?LDL 380 3ch o 199trig 272HDL 35.4LDL 116.2 11/10/2023 cho 242trig 350HDL 41LDL 179Avoid all breads, potatoes, cereal, pasta, rice, margarine, refined sugars, milk yogurt, ice cream, juices, soda (including diet), beer, and manmade or manufactur ed desserts. Enjoy steak, fish, chicken (no skin), pork, butter, vegetables , beans, nuts, whole eggs, cheese (low fat or skim), cream in your coffee. Essential hypertension 44983979 I10 BP Goal: {{Less than 140/90* Le ss than 150/90}}BP Controlled : {{yes* no} }Healthy Weight: {{4'10= 91-118 lbs 4'11= 94-123 lbs 5'= 97-127 lbs 5'1= 100-131 lbs 5'2= 104-135 5' 3= 107-140 lbs 5'4= 110-144 lbs* 5'5= 115-149 lbs 5'6= 118-154 lbs 5'7= 121-158 lbs 5'8= 125-163 lbs 5'9= 128-168 lbs 5'10= 132-173 lbs 5'11= 136-178 lbs 6'= 140-183 lbs 6'1= 144-188 lbs 6'2= 148-193 lbs 6'3= 152-199 lbs 6'4= 156-204 lbs}}Discu ssed: Low sodium balanced diet, moderate exercise at least 3-4 times per week for an average of 40 minutesNex t Visit: {{1 2 3* 4 5 6 7 8 9 10 11 12} }{{week(s) month(s)* }}will continue chlorthali done 15mg daily Chronic go uty arthritis 29990010 M1A.00X0 Dx in [place] Benign pro static hyperplasia 190161347 N40.0 11/15/2022 PSA 0.4Had ultrasound of prostate in [place] Obesity 436559169 E66.9 BMI 36.2Health y Weight: {{4'10= 91-118 lbs 4'11= 94-123 lbs 5'= 97-127 lbs 5'1= 100-131 lbs 5'2= 104-135 5' 3= 107-140 lbs 5'4= 110-144 lbs* 5'5= 115-149 lbs 5'6= 118-154 lbs 5'7= 121-158 lbs 5'8= 125-163 lbs 5'9= 128-168 lbs 5'10= 132-173 lbs 5'11= 136-178 lbs 6'= 140-183 lbs 6'1= 144-188 lbs 6'2= 148-193 lbs 6'3= 152-199 lbs 6'4= 156-204 lbs}} Mixed anxi ety and depressive disorder 251068582 F41.8 Has started taking calm challenge once dailyPure Magnesium glycinate once dailyCital opram 20mg daily is helping wants to continue it 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 Or if you need to, slowly get to a healthy weight. Control your cholestero l. . You might try getting active, taking medicines, and making healthy changes to your diet. Eat healthy foods. This includes fruits, vegetables , lean meats and dairy, and whole grains. If you have diabetes, keep your blood sugar at your target level. Get at least 30 minutes of exercise on most days of the week. Walking is a good choice. You also may want to do other activities , such as running, swimming, cycling, or playing tennis or team sports. Limit alcohol, or do not drink. Alcohol can damage the liver and cause health problems. Depression screening 171 281316 Z13.31 PHQ 2-9 negative Nocturia 101206577 R35.1 Scalp folliculitis 88472 8003 L73.8 bumps on scalp for over 3-4 yearswax and wane Type 2 juvenal betes mellitus 02065957 E11.9 newly dxstart metformin ER 500mgHypog lycemiaHyp erglycemia Microscopic hematuria 19 7016234 R31.29 [id number] Lesvia Wiseman [facility] [address] [place] [address] 08/20/2024 10:05:43 08/24/2024 13:25:21 Body mass index 30+ - obesity 224932565 Z68.31 BMI 34.4Ht 5' 4 Healthy weight ajqvr226-8 44 lbs Type 2 juvenal betes mellitus 17311007 E11.9 newly dxincrease metformin ER 500mg QD to 1000 mg dailyHypog lycemiaHyp erglycemia Mixed hyperlipidemia 267 209454 E78.2 [facility] 563HDL ?LDL 380 3ch o 199trig 272HDL 35.4LDL 116.2 11/10/2023 cho 242trig 350HDL 41LDL 179 07/21/2024 cho 226trig 629HDL 31LDL 165Have the patient increase atorvastat in 40mg to 80mg dailyVasce pa 1gm 2 gm twice daily-shawn ent was only taking one pill once dailyAvoid all breads, potatoes, cereal, pasta, rice, margarine, refined sugars, milk yogurt, ice cream, juices, soda (including diet), beer, and manmade or manufactur ed desserts. Enjoy steak, fish, chicken (no skin), pork, butter, vegetables , beans, nuts, whole eggs, cheese (low fat or skim), cream in your coffee. Health Concerns Section Related Observation LastModified by Organization Detai ls LastModified Time None Recorded Concern Status LastModified by Organization Details LastModified Time None Recorded Advance Directives Directive N: Payers Encounter Date Sequence Insurance Name Policy Number Policy [place] Covered Member ID [place] Member ID Guarantor Name 11/10/2023 1 [facility] (MEDICAID REPLACEMENT - HMO) [id number] Rodger Almonte [id number] Rodger Almonte 12/29/2023 1 *SELF PAY* Sugar Almonte 04/20/2024 1 *SELF PAY* Sugar Almonte 07/21/2024 1 [place] [facility] Rodger Almonte [id number] Rodger Almonte 08/20/2024 1 [place] [facility] Rodger Almonte [id number] Rodger Almonte Notes Date Note Type Note Provider Name and Address Organization Details Recorded Time 024 text/h tml Hand/FingersReported bypatient.Hand Dominance:right Location:right; medial; deep; radial; dorsal Quality:dull; frequent Severity:moderate Duration:3 weeks; continuous since onset Timing:abrupt; nighttime Context:overuse Alleviating Factors:nothing helps Aggravating Factors:pushing/pulling; gripping; grasping; squeezing Associated Symptoms:no weakness; no numbness; no tingling; no swelling; no redness; no warmth; no ecchymosis; no catching/locking; no popping/clicking; no buckling; no grinding; no instability; no radiation; no drainage; no fever; no chills; no weight loss; no change in bowel/bladder habits Previous Surgery:none Prior Imaging:none Work Related:yes Working:regular duty Dressingindependently Undressingindependently Toiletingindependently Bathingindependently Brushing hairindependently Brushing teethindependently Shavingindependently Grocery shoppingindependently Carrying grocery bagsindependently Reaching high shelvesindependently Putting groceries awayindependently Preparing mealsindependently Cutting foodindependently Eatingindependently Washing dishesindependently Drying dishesindependently Making the bedindependently Changing the bed sheetsindependently Gathering and taking out trashindependently Doing laundryindependently Cleaning ceiling fansindependently Cleaning counter topsindependently Cleaning the floors and wallsindependently Cleaning the outside of the ovenindependently Cleaning the ovenindependently Cleaning the refrigeratorindependently Cleaning the sink, tub, and/or toiletindependently Cleaning windowsindependently Dusting the furnitureindependently Sweeping and mopping floorsindependently Vacuuming the floorindependently Gardeningindependently Mowing the lawnindependently Raking leavesindependently Shoveling snowindependently Replacing batteries in smoke detectorsindependently Replacing light bulbsindependently Transferring in and out of the tub or showerindependently Transferring in and out of the carindependentlyHypertensionReported bypatient.Duration:has noted for years Associated Symptoms:no shortness of breath; no fatigue; no palpitations; no decline in exercise capacity; no snoring;numbnessPeripheral NeuropathyReported bypatient.Location:no weak limbs; no balance difficulty;numbness;tingling Severity:mild Duration:has noted for months Onset/Timing:better Context:no change in mood; no change in sleep Modifying Factors:symptoms better with medication; symptoms better with movement Associated Symptoms:no other pain; no fatigue; no weakness; no difficulty climbing stairs; no difficulty in the dark; no difficulty walking on uneven surfaces; does not stumble; does not fall; no foot dragging; no loss of muscle mass; does not drop items; no periodic limb movement in sleep (PLMS); no restless legs; no tremors; no dizziness; no blurred vision; no urinary loss of control; no low back pain 48 y/o HM presents for elevated blood pressure check and c/o R hand/fingers numbness and tingling 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 In addition he is c/o R foot dorsum numbness non debilitating. The patient has gout and he had R ankle gout symptoms. He reports symptoms started after gout Dx.c/o hearing loss and making a lot of wax.He did not get NCS done as voices gabapentin helps. Still has foot dorsum paresthesia.Still getting up to void with some discomfort at end of urination.The patient voices he was told in [place] he has kidney stones about a year ago. He was told to drink a lot of water. He wants to be re-evaluated. I referred him to urologist at last visit but has not been seen yet. His kidney u/s does show kidney stones on the L. JAY JAY Herrera Attn: Accounting ,[address] [place], [address] , [facility] 11/11/2023 18:28:30 024 text/h tml 48 y/o HM on the telephone for refill of psychotropic medication started on 11/05/2023.The patient voices he thinks his symptoms have improved since starting citalopram. His mental health questionnaire due indicate abnormality. Hence, he agrees to continue psychotropic as he has no time for psychotherapy. He started taking some natural product from [place] calm . JAY JAY Herrera Attn: Accounting ,[address] [place], [address] , [facility] 12/29/2023 13:16:50 024 text/h tml Hand/FingersReported bypatient.Hand Dominance:right Location:right; medial; deep; radial; dorsal Quality:dull; frequent Severity:moderate Duration:3 weeks; continuous since onset Timing:abrupt; nighttime Context:overuse Alleviating Factors:nothing helps Aggravating Factors:pushing/pulling; gripping; grasping; squeezing Associated Symptoms:no weakness; no numbness; no tingling; no swelling; no redness; no warmth; no ecchymosis; no catching/locking; no popping/clicking; no buckling; no grinding; no instability; no radiation; no drainage; no fever; no chills; no weight loss; no change in bowel/bladder habits Previous Surgery:none Prior Imaging:none Work Related:yes Working:regular duty Dressingindependently Undressingindependently Toiletingindependently Bathingindependently Brushing hairindependently Brushing teethindependently Shavingindependently Grocery shoppingindependently Carrying grocery bagsindependently Reaching high shelvesindependently Putting groceries awayindependently Preparing mealsindependently Cutting foodindependently Eatingindependently Washing dishesindependently Drying dishesindependently Making the bedindependently Changing the bed sheetsindependently Gathering and taking out trashindependently Doing laundryindependently Cleaning ceiling fansindependently Cleaning counter topsindependently Cleaning the floors and wallsindependently Cleaning the outside of the ovenindependently Cleaning the ovenindependently Cleaning the refrigeratorindependently Cleaning the sink, tub, and/or toiletindependently Cleaning windowsindependently Dusting the furnitureindependently Sweeping and mopping floorsindependently Vacuuming the floorindependently Gardeningindependently Mowing the lawnindependently Raking leavesindependently Shoveling snowindependently Replacing batteries in smoke detectorsindependently Replacing light bulbsindependently Transferring in and out of the tub or showerindependently Transferring in and out of the carindependentlyHypertensionReported bypatient.Duration:has noted for years Associated Symptoms:no shortness of breath; no fatigue; no palpitations; no decline in exercise capacity; no snoring;numbnessPeripheral NeuropathyReported bypatient.Location:no weak limbs; no balance difficulty;numbness;tingling Severity:mild Duration:has noted for months Onset/Timing:better Context:no change in mood; no change in sleep Modifying Factors:symptoms better with medication; symptoms better with movement Associated Symptoms:no other pain; no fatigue; no weakness; no difficulty climbing stairs; no difficulty in the dark; no difficulty walking on uneven surfaces; does not stumble; does not fall; no foot dragging; no loss of muscle mass; does not drop items; no periodic limb movement in sleep (PLMS); no restless legs; no tremors; no dizziness; no blurred vision; no urinary loss of control; no low back pain 49 y/o HM presents for chronic medicines. He has been out of meds for 1 month. The patient has gout and he had R ankle gout symptoms. He reports symptoms started after gout Dx.Still has foot dorsum paresthesia. Gabapentin helps with this so wants Rx.Still getting up to void with some discomfort at end of urination.He wants to get influenza vaccine. Has no contraindication. JAY JAY Herrera Attn: Accounting ,[address] [place], [address] , [facility] 04/20/2024 15:00:32 025 text/h tml Hand/FingersReported bypatient.Hand Dominance:right Location:right; medial; deep; radial; dorsal Quality:dull; frequent Severity:moderate Duration:3 weeks; continuous since onset Timing:abrupt; nighttime Context:overuse Alleviating Factors:nothing helps Aggravating Factors:pushing/pulling; gripping; grasping; squeezing Associated Symptoms:no weakness; no numbness; no tingling; no swelling; no redness; no warmth; no ecchymosis; no catching/locking; no popping/clicking; no buckling; no grinding; no instability; no radiation; no drainage; no fever; no chills; no weight loss; no change in bowel/bladder habits Previous Surgery:none Prior Imaging:none Work Related:yes Working:regular duty Dressingindependently Undressingindependently Toiletingindependently Bathingindependently Brushing hairindependently Brushing teethindependently Shavingindependently Grocery shoppingindependently Carrying grocery bagsindependently Reaching high shelvesindependently Putting groceries awayindependently Preparing mealsindependently Cutting foodindependently Eatingindependently Washing dishesindependently Drying dishesindependently Making the bedindependently Changing the bed sheetsindependently Gathering and taking out trashindependently Doing laundryindependently Cleaning ceiling fansindependently Cleaning counter topsindependently Cleaning the floors and wallsindependently Cleaning the outside of the ovenindependently Cleaning the ovenindependently Cleaning the refrigeratorindependently Cleaning the sink, tub, and/or toiletindependently Cleaning windowsindependently Dusting the furnitureindependently Sweeping and mopping floorsindependently Vacuuming the floorindependently Gardeningindependently Mowing the lawnindependently Raking leavesindependently Shoveling snowindependently Replacing batteries in smoke detectorsindependently Replacing light bulbsindependently Transferring in and out of the tub or showerindependently Transferring in and out of the carindependentlyHypertensionReported bypatient.Duration:has noted for years Associated Symptoms:no shortness of breath; no fatigue; no palpitations; no decline in exercise capacity; no snoring;numbnessPeripheral NeuropathyReported bypatient.Location:no weak limbs; no balance difficulty;numbness;tingling Severity:mild Duration:has noted for months Onset/Timing:better Context:no change in mood; no change in sleep Modifying Factors:symptoms better with medication; symptoms better with movement Associated Symptoms:no other pain; no fatigue; no weakness; no difficulty climbing stairs; no difficulty in the dark; no difficulty walking on uneven surfaces; does not stumble; does not fall; no foot dragging; no loss of muscle mass; does not drop items; no periodic limb movement in sleep (PLMS); no restless legs; no tremors; no dizziness; no blurred vision; no urinary loss of control; no low back pain 49 y/o HM presents for chronic medicines. He has been out of meds for 1 month. The patient denies gout symptoms. He reports kane hand/finger paresthesia worse on the R. Symptoms for about 2-3 years. Has not been using splint. Still has foot dorsum paresthesia. Gabapentin helps with this so wants Rx.Still getting up to void with some discomfort at end of urination. Since running out of meds symptoms worse. He has gained weight. He wants to get checked for DM2. He cant hear well. 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 JAY JAY Herrera Attn: Accounting ,[address] [place], [address] , [facility] 07/21/2024 11:23:07 025 text/h tml Diabetes F/UReported bypatient.Context:normal range of home blood sugars (in the low 100s); seeing eye doctor regularly; checking feet regularly Associated Symptoms:no weight gain; no weight loss; no dizziness; no sweats; no headaches; no confusion; no increased thirst; no increased appetite; no increased urination; no blurred vision; no numbness of feet; no calluses on feetHyperlipidemiaReported bypatient.Type of hyperlipidemia:combined Duration:chronic;intermittent Prior Tests:08/14/2022 in [facility] cho 220 trig 563 HDL ? LDL 380 11/15/2022 cho 199 trig 272 HDL 35.4 LDL 116.2 11/10/2023 cho 242 trig 350 HDL 41 LDL 179 07/21/2024 cho 226 trig 629 HDL 31 LDL 165 Control:usually poorly controlled;worsening;not at goal Current Therapy:currently taking:; last cholesterol level: (07/21/2024 cho 226 trig 629 HDL 31 LDL 165) Compliance:compliant; compliant with diet; exercises Complications:no coronary artery disease; no peripheral artery disease; no cardiovascular disease Risk Factors:diabetes;hypertension;obesity; high lipoprotein(a) level 49 y/o HM Croatian speaking presents for recheck on newly diagnosed DM2 and worsening lipids. He is watching diet. He has lost 11 pounds. BS fasting still elevated. Denies alcohol use or abdominal pain. He is not having any CP, SOB or headaches occasional blurry vision. JAY JAY Herrera Attn: Accounting ,[address] [place], [address] , [facility] 08/20/2024 14:31:01
== END 2024-09-21 13:01 | disposition home or self-care (01) ==
LOC: ANHNEURO 13:17
PROVIDERS: PCP Registered Nurse; Visit Provider Registered Nurse
DX: G56.01 Carpal tunnel syndrome, right upper limb (principal)
CPT/HCPCS: 95886; 95909